=== PATIENT | male | born 1970 | race Caucasian/White ===

== ENCOUNTER 2023-09-15 06:41 | Emergency (ER) | payer OTHER, SELFPAY ==
[2023-09-15 07:01] VITALS: BP 126/71
--- NOTE | 2023-09-15 07:23 | ED.GENMED ---
History of Present Illness
General
Chief Complaint: AICD Problem
Source: patient
Time Seen by Provider: 09/15/23 07:12
Travel History
Have you had any contact with someone who has COVID-19?: No
Do you have any symptoms of coronavirus? Fever > 100 degrees, chills, cough, shortness of breath, sore throat, loss of taste or smell, muscle aches, or headache?: No
History of Present Illness
History of Present Illness:
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
he started to feel little bit lightheaded and then suddenly felt as if someone punched him in the chest with concerns that his AICD fired. Patient arrives to the emergency department still saying he feels a little bit lightheaded but not as bad as
he had prior to arrival to the emergency department. He denies any chest pain, shortness of breath, palpitations, diaphoresis, exertional dyspnea, orthopnea, abdominal pain, nausea, vomiting or any other concerns. Patient states that he has been
feeling quite well lately although he does note this morning his sugars were little bit higher than normal.
Past History
Past History
ED Past Medical History: CAD, HTN, Hypercholesterolemia, IDDM, [place] and Other (Obstructive sleep apnea)
ED Past Surgical History: Cardiac (4 vessel stent placement) and Orthopedic
Social History
Tobacco: Smoker
Alcohol: Occasional
Drug: None
Personal:
Living: with family
Employment: Employed
Family History
Family History: Other (Noncontributory)
Review of Systems
Review of Systems
All Other Systems: ROS reviewed and negative except as documented in HPI and ROS
Phy Exam
Physical Exam
Physical Exam:
GENERAL: Alert , in no apparent distress
EYE: conjunctiva clear
NECK: Supple
ENT: o/p clr, mmm.
CARDIAC: Regular rate and rhythm
LUNGS: Clear breath sounds bilaterally, no acute respiratory distress, no wheezes/rales/rhonchi
NEUROLOGICAL: Alert and oriented
SKIN: Warm and dry, skin intact.
MUSCULOSKELETAL: well perfused.
PSYCH: Normal and appropriate interaction.
Scores
Heart Failure Risk
Heart Failure Risk Score: Not Applicable
Heart Score for Chest Pain Patients
STEMI patient?: Not applicable
Withdrawal Assessment of Alcohol
Withdrawal Assessment Completed?: Not applicable
Course
Orders/Labs/Results
Orders:
Orders
09/15/23 06:50
EKG [Electrocardiogram (*1)] Urgent
Reason for Study: Vertigo / Dizzy
EKG- Treatment ONCE
09/15/23 07:27
Basic Metabolic Panel Urgent
Complete Blood Count/With Diff Urgent
Magnesium Urgent
Abnormal Lab Results
09/15/23
07:27
WBC 11.2 H 10^3/uL
(4.8-10.8)
MPV 11.6 H fL
(7.4-10.4)
Abs Immat Gran (auto) 0.1 H 10^3/uL
(0-0.05)
Absolute Neuts (auto) 7.9 H 10^3/uL
(1.4-6.5)
Absolute Monos (auto) 0.9 H 10^3/uL
(0.1-0.6)
Lymphocytes % 17.5 L %
(20.5-51.1)
Glucose 230 H mg/dl
(70-99)
09/15/23 07:27
09/15/23 07:27
Vital Signs
Initial and Last Documented VS:
Initial Vital Signs
Temp Pulse Resp BP Pulse Ox
97.8 F 80 16 126/71 98
09/15/23 07:01 09/15/23 07:01 09/15/23 07:01 09/15/23 07:01 09/15/23 07:01
Last Documented Vital Signs
Temp Pulse Resp BP Pulse Ox
97.8 F 77 8 138/77 99
09/15/23 07:01 09/15/23 09:00 09/15/23 07:26 09/15/23 09:00 09/15/23 09:00
MDM/Problems Addressed
Differential Diagnosis Includes:
Cardiac dysrhythmia, orthostasis, vagal event
MDM/Problems Addressed:
52-year-old male presenting emergency department for evaluation after he believes his AICD went off after feeling an episode of lightheadedness while at work. Arrives to the emergency department mostly asymptomatic noting that he still has some
mild lightheadedness but this is significantly improved from previous. He is hemodynamically stable in no acute distress. Tempting to interrogate his [employer] device. Patient kept on telemetry. His EKG done in triage is without ectopy
and no signs of ischemia. Disposition pending
Chronic conditions affecting care: Arrhythmia
Acute Exacerbation and/or Progression of Chronic Illness: Arrhythmia
*Pulse Oximetry
Patient hypoxic: no
*EKG
Interpreted by ED Provider?: Yes
Comparison EKG: no changes
Heart Rate: 78
Rate: normal
Rhythm: sinus
Ischemia: no ischemia
*Technical Staff Engineer Interpretation
Rate: normal
Rhythm: sinus
*Critical Care Note
Total Time (30-74mins, 75-104mins- exclusive of procedures): Not Applicable
Patient Management
Discussion with other providers: Other
Escalation/DeEscalation of care consider admission/obs:
[employer] commissary representative came to the emergency department to interrogate patient's AICD and there was no evidence for any cardiac dysrhythmias and no shocks were delivered. Patient has remained hemodynamically stable here and asymptomatic.
Advised he follow-up with his plastic manager at [employer], Dr. Randall, within the week. Aware of return precautions emergency department but otherwise stable for discharge home.
ED Attending Note
-
Portions of this chart may have been created with voice recognition software.� Occasional wrong word or��sound alike� substitutions may have occurred due to the inherent limitations of voice recognition software.
Discharge Plan
Departure
Patient Disposition: Home (Routine Discharge)
Date of Disposition: 09/15/23
Time of Disposition: 09:48
Patient with high blood pressure during this ER visit?: No
Discharge Problem:
Lightheadedness, Diabetes mellitus
Instructions: Near Fainting (DC)
Prescriptions:
No Action
aspirin 325 MG tablet
325 mg PO DAILY
metformin 1,000 MG tablet
1,000 mg PO BID@0800,1700
atorvastatin 20 MG tablet
80 mg PO DAILY
insulin glargine [Lantus Solostar U-100 Insulin] 300 UNITS/3 ML insulin pen
35 units SC HS
prasugrel 10 MG tablet
10 mg PO DAILY
losartan 50 MG tablet
25 mg PO DAILY
sildenafil [Viagra] 100 MG tablet
100 mg PO DAILYPRN PRN (Reason: ED)
nitroglycerin 0.4 MG tablet, sublingual
0.4 mg sublingual [id number] PRN (Reason: chest pain)
folic acid 1 MG tablet
1 mg PO DAILY
ezetimibe 10 MG tablet
10 mg PO DAILY
insulin lispro [Humalog KwikPen Insulin] 100 UNIT/ML insulin pen
10 units SC MEALS
Patient Comments:
11/28/21-patient said he hasnt used this in a month, called [facility] they said he has l[facility]us on file but not covered by insurance and novolog from 2 years ago, that on hold and never picked up
carvedilol [Coreg] 6.25 mg Tablet
6.25 mg PO BID
Jardiance 10 mg tablet
10 mg PO DAILY Qty: 30 6RF
isosorbide mononitrate 60 mg tablet extended release 24 hr
60 mg PO BID Qty: 60 6RF
Rx Instructions:
Increase Imdur to 60 mg twice a day
Referrals:
Ladarius Steinberg MD [Family Provider] -
Interventions
Interventions:
*Risk Screen - Suicide Last Done: 09/15/23 07:25
*General Assessment Last Done: 09/15/23 07:01
*Neglect/Abuse Screening Last Done: 09/15/23 07:25
ED- Fall Risk Assessment Last Done: 09/15/23 07:25
*ED COVID-19 Vaccine History Last Done: 09/15/23 07:01
ED- Cardiac Assessment Last Done: 09/15/23 07:25
Discharge Date and Time
Print Language: NAURUAN
[2023-09-15 07:25] VITALS: BMI 37.2
[2023-09-15 07:26] VITALS: BP 137/81
[2023-09-15 07:55] LABS: % Basophils 0.7 % (0-2); % Immature Granulocytes 0.4 % (0-0.5); % Lymphocytes 17.5 % (20.5-51.1); % Monocytes 7.8 % (1.7-9.3); % Neutrophils 70.6 % (42.2-75.2); Absolute Basophils 0.1 10^3/uL (0-0.2); Absolute Eosinophils 0.3 10^3/uL (0-0.7); Absolute Immature Granulocytes 0.1 10^3/uL (0-0.05); Absolute Monocytes 0.9 10^3/uL (0.1-0.6); Absolute Neutrophils 7.9 10^3/uL (1.4-6.5); Hematocrit 45.2 % (39.0-52.0); Hemoglobin 15.4 g/dL (13.0-18.0); Mean Corp Hgb Conc. 34.1 g/dL (33.0-37.0); Mean Corpuscular Hgb 28.2 pg (27.0-31.0); Mean Corpuscular Volume 82.8 fL (80.0-94.0); Mean Platelet Volume 11.6 fL (7.4-10.4); Nucleated Red Blood Cells % 0 % (-); Platelet Count 210 10^3/uL (130-400); Red Blood Cell Count 5.46 10^6/uL (4.70-6.10); Red Cell Dist. Width 13.4 % (11.5-14.5); White Blood Cell Count 11.2 10^3/uL (4.8-10.8)
[2023-09-15 07:57] LABS: Blood Urea Nitrogen 20 mg/dl (9-20); Calcium 9.4 mg/dl (8.4-10.2); Carbon Dioxide 29 mmol/L (22-30); Chloride 104 mmol/L (98-107); Glucose 230 mg/dl (70-99); Magnesium 1.7 mg/dl (1.6-2.3); Potassium 4.5 mmol/L (3.5-5.1); Sodium 135 mmol/L (135-145); eGFR > 60.00
[2023-09-15 08:00] VITALS: BP 110/68
[2023-09-15 09:00] VITALS: BP 138/77
[2023-09-15 09:52] VITALS: BP 129/69
[2023-09-15 09:55] VITALS: BP 129/69
== END 2023-09-15 09:55 | disposition home or self-care (01) ==
LOC: EMR 06:41
PROVIDERS: Physician Assistant Medical; EMERGENCY PHYSICIAN Emergency Medicine; FAMILY PHYSICIAN Internal Medicine
DX: R42 Dizziness and giddiness (principal); E11.9 Type 2 diabetes mellitus without complications; I25.10 Atherosclerotic heart disease of native coronary artery without angina pectoris; I10 Essential (primary) hypertension; E78.00 Pure hypercholesterolemia, unspecified; G47.33 Obstructive sleep apnea (adult) (pediatric); F17.200 Nicotine dependence, unspecified, uncomplicated; I25.2 Old myocardial infarction; Z79.4 Long term (current) use of insulin; Z95.5 Presence of coronary angioplasty implant and graft; Z95.810 Presence of automatic (implantable) cardiac defibrillator
CPT/HCPCS: 99283; 93289; 80048; 83735; 85025; 93005

== ENCOUNTER 2024-01-16 14:25 | Inpatient (IN) | payer OTHER, SELFPAY ==
[2024-01-14] VITALS (9 sets, daily range): BP systolic 103–164; BP diastolic 76–94; BMI 37.8
[2024-01-14 19:48] LABS: Glucose - Point of Care 508 mg/dl (70-99)
--- NOTE | 2024-01-14 19:58 | ED.CVA ---
History of Present Illness
General
Chief Complaint: CVA/TIA Symptoms
Source: patient
Exam Limitations: none
Time Seen by Provider: 01/14/24 19:52
Nursing documentation reviewed up to this point in time: agreed with
Onset of Stroke Symptoms
Onset of symptoms known: Yes
Date of onset of symptoms: 01/14/24
Time of onset of symptoms: 19:00
Time pt last seen normal is known: Yes
Date last time pt seen normal: 01/14/24
History of Present Illness
History of Present Illness:
53-year-old male presents emergency room via ambulance due to episode of slurred speech, lightheadedness, tingling and numbness upper extremity.
Past History
Past History
ED Past Medical History: CAD, HTN, Hypercholesterolemia, IDDM, [place] and Other (Obstructive sleep apnea)
ED Past Surgical History: Cardiac (4 vessel stent placement) and Orthopedic
Social History
Tobacco: Smoker
Alcohol: Occasional
Drug: None
Personal:
Living: with family
Employment: Employed
Family History
Family History: Other (Noncontributory)
Phy Exam
Physical Exam
Physical Exam:
Physical Exam
General: Afebrile
Neck: supple. no meningeal signs. normal posterior pharynx
Heart: s1/s2 regular rate and rhythm, no murmur. equal radial
pulses.
HEENT: Pupils equal round reactive to light, EOMI
Lungs: no acute respiratory distress. clear bilaterally
Abdomen: normal bowel sounds. not tender. no CVAT
Neuro: alert and oriented. no focal neurological deficits cranial nerves II through XII intact
Skin: no rash
Psychiatric: well kept. interactive and cooperative
Extremities: no edema. no calf tenderness. negative homans. good distal pulses
Scores
NIH Stroke Score
Level of Consciousness: 0 - Alert
LOC Questions: 0-Answers both correctly
LOC Commands: 0-Performs both correctly
Best Horizontal Gaze: 0-Normal
Visual Santos: 0=Normal, no visual loss
Facial Palsy: 0=Normal, symmetrical
Motor - Right Arm: 0=No drift 10 seconds
Motor - Left Arm: 0=No drift 10 seconds
Motor - Right Le-No drift 5 seconds
Motor - Left Le-No drift 5 seconds
Limb Ataxia: 0-Absent
Sensation: 1-Mild loss
Best Language: 0-No aphasia
Dysarthria: 0-Normal
Extinction and Inattention: 0-No abnormality
Total Score:: 1
Course
Orders/Labs/Results
Orders:
Orders
01/14/24 19:52
CT Head W/o Cont STROKE ALERT Stat
Comment:
Reason For Exam: left side sensory def
01/14/24 19:53
IV Insert/Care/Rem.- Treatment PRN
01/14/24 20:17
B-Hydroxybutyrate Urgent
Complete Blood Count/With Diff Urgent
Comprehensive Metabolic Panel Urgent
Hemoglobin A1c [Glycohemoglobin (HgbA1c)] Urgent
Lactate Level [Lactic Acid] Urgent
Venous Blood Gas Urgent
%Oxygen/Room Air: 97
01/14/24 20:23
Urinalysis Reflex To Culture Urgent
Date Specimen was Collected: 01/14/24
Time Specimen was Collected: 19:52
01/14/24 20:25
EKG [Electrocardiogram (*1)] Urgent
Reason for Study: TIA/Stroke
01/14/24 20:26
EKG- Treatment ONCE
01/14/24 22:12
Insulin Aspart [NOVOLOG vial] 10 units SC NOW STA
01/14/24 22:56
Admit/Transfer Patient As Directed
Co-Sign Provider:
Level of Care: Observation services
Assign to:: Telemetry
Physician / Group: Hospitalist
Diagnosis: TIA, hyperglycemia
Reason for Telemetry: CVA/TIA
Date to Stop Telemetry: 01/17/24
Time to Stop Telemetry: 11:00
PRN Pain Medication Management As Directed
May give lesser potent ordered pain med per pt: Yes
preference::
Protocol:: Medication orders for pain may be administered in a
manner that supports deferring to patient preference
when the pt is:
- Requesting an ordered lesser potent pain medication.
Least to most potent pain medications are defined
as: acetaminophen < NSAID < tramadol < opioids
(morphine, oxycodone, hydromorphone).
- Requesting a lesser dose of the same medication IF
ORDERED.
- Requesting a less intrusive route of administration
if both routes are prescribed by the provider (PO <
IV).
01/14/24 22:57
Code Status As Directed
Resuscitation Status: Full Code
01/14/24 23:00
Flush (0.9% Sodium Chloride) [Flush (Nss)] See Dose Instructions IV PER PROTOCOL
01/14/24 23:28
Acetaminophen [Tylenol] 650 mg PO NOW STA
Acetaminophen [Tylenol] 650 mg PO Q6HPRN PRN
01/15/24 00:55
Acetaminophen [Tylenol/Feverall] 650 mg RECTAL Q4HPRN PRN
Acetaminophen [Tylenol] 650 mg PO Q4HPRN PRN
Dextrose 50%-Water [Dextrose 50% Syringe] 12.5 grams IV [id number] PRN
Glucagon [GlucaGen] 1 mg IM PRN PRN
Insulin Glargine Lantus [Lantus] 30 units Subcutaneous Insulin Syringe [Syringe-Insulin] 0 unit SC ONCE
01/15/24 00:55
NEUROLOGY CONSULT Routine
Consulting Provider: Raul Ignacio
Was physician already notified: Yes
Reason for consult: TIA
MRI Brain [MR Brain Without Contrast] Routine
Comment:
Reason For Exam: TIA/CVA. h/o left arm numbness
Recent pill cam endoscopy?: No
Pacemaker/Defibrillator?: Yes
Is the pacemaker a conditional type?: Yes
Activity As Directed
Activity Level: With Assistance
Bedside Glucose Monitoring As Directed
Frequency: AC&HS
Additional Instructions:: Change to q6h if pt on TPN, tube feeding or not eating
Bedside Glucose Monitoring As Directed
Frequency: AC&HS
NIH Stroke Scale As Directed
Directions: Per protocol
Comment: every shift and with any change in condition or mental status
Neurological Checks As Directed
Frequency: q4h
Additional Instructions:: q4h x 24h upon admission to the floor, then qshift & with any change in condition
and mental status
Patient Education As Directed
Type: Stroke education packet
Comment: provide to patient and family
Vital Signs As Directed
Frequency: Per unit guidelines
DX Deep Vein Thrombosis Video Routine
01/15/24 06:00
Cardiovascular Evaluation IN AM
01/15/24 07:30
Insulin Aspart Corrective Mod [Novolog Flexpen-Moderate Resistance] See Protocol SC AC
Insulin Aspart Pen [Novolog Flexpen] 10 units SC AC
01/15/24 08:00
Aspirin 325 mg PO DAILY
Atorvastatin [Lipitor] 80 mg PO DAILY
Carvedilol [Coreg] 6.25 mg PO BID
Clopidogrel Bisulfate [Plavix] 75 mg PO DAILY
Ezetimibe [Zetia] 10 mg PO DAILY
FOLic ACID [Folvite] 1 mg PO DAILY
ISOSORBIDE MONOnitrate ER [Imdur (Extended Release)] 60 mg PO BID
Losartan [Cozaar] 25 mg PO DAILY
METFORMIN HCl [Glucophage] 1,000 mg PO BID@0800,1700
01/15/24 Dinner
2000 calorie (17 carb) Diabetic
At Your Request: Limited Participation
01/15/24 18:00
Enoxaparin Sodium [Lovenox] 40 mg SC QPM
01/15/24 22:00
Insulin Glargine Lantus [Lantus] 30 units Subcutaneous Insulin Syringe [Syringe-Insulin] 0 unit SC HS
01/17/24 11:00
DC Protocol for Telemetry ONCE
Abnormal Lab Results
01/14/24 01/14/24 01/14/24
19:46 20:17 20:23
MPV 11.5 H fL
(7.4-10.4)
Abs Immat Gran (auto) 0.1 H 10^3/uL
(0-0.05)
Absolute Neuts (auto) 7.1 H 10^3/uL
(1.4-6.5)
Absolute Monos (auto) 0.9 H 10^3/uL
(0.1-0.6)
Immature Gran % 0.7 H %
(0-0.5)
VBG pO2 62 H mmHg
(30-50)
VBG HCO3 27.9 H mmol/L
(22-27)
Glucose 492 H* mg/dl
(70-99)
AST 16 L U/L
(17-59)
Alkaline Phosphatase 131 H U/L
(38-126)
Urine Glucose 3+ A
(Negative)
POC Glucose 508 H* mg/dl
(70-99)
01/14/24 20:17
01/14/24 20:17
Vital Signs
Initial and Last Documented VS:
Initial Vital Signs
Temp Pulse Resp BP Pulse Ox
98.6 F 95 20 164/94 97
01/14/24 19:41 01/14/24 19:41 01/14/24 19:41 01/14/24 19:41 01/14/24 19:41
Last Documented Vital Signs
Temp Pulse Resp BP Pulse Ox
98.2 F 79 18 141/87 97
01/15/24 01:18 01/15/24 01:18 01/15/24 01:18 01/15/24 01:18 01/15/24 01:18
MDM/Problems Addressed
Differential Diagnosis Includes:
CVA, intracranial hemorrhage
MDM/Problems Addressed:
53-year-old male with likely TIA versus CVA. No indication for IAT or tPA. Admit to hospitalist for further evaluation. Hyperglycemia, no DKA.
Chronic conditions affecting care: DM
Acute Exacerbation and/or Progression of Chronic Illness: DM
*Radiology
Radiology exam reviewed: radiology read reviewed (CT head no acute finding)
*Pulse Oximetry
Patient hypoxic: no
*EKG
Interpreted by ED Provider?: Yes
EKG Intrepretation Date: 01/15/24
EKG Intrepretation Time: 20:44
Interpretation: abnormal
Heart Rate: 88
Rate: normal
Rhythm: sinus
Byron: normal axis
Interval: normal interval
QRS Pattern: normal QRS
Ischemia: no ischemia
*Director Design Interpretation
Rate: normal
Interpretation: normal
Heart Rate: 87
Rhythm: sinus
*Critical Care Note
Total Time (30-74mins, 75-104mins- exclusive of procedures): 30
comment:
Critical care statement: A total of 30 minutes of critical care time was provided for this patient. This includes management of unstable vital signs, evaluation of the patient at bedside, reviewing the patient's pertinent medical records, discussion
with consultants, review of old EKGs and review of pertinent medical records. This time with separate from time utilized to perform the aforementioned documented procedures
Data Reviewed
Review of Other/Old Records Reveals: Records
Source: records (Prior evaluation with a EF of 20% in 2020)
Patient Management
Discussion with other providers: Hospitalist and Force Variation Equipment Tender (neurology Dr. Raul Ignacio)
Escalation/DeEscalation of care consider admission/obs:
admit indicated
ED Attending Note
-
Portions of this chart may have been created with voice recognition software.� Occasional wrong word or��sound alike� substitutions may have occurred due to the inherent limitations of voice recognition software.
Discharge Plan
Departure
Patient Disposition: Admit
Date of Disposition: 01/14/24
Time of Disposition: 21:56
Admit to: Telemetry
Presentation/result/management discussed w/ accepting MD/DO: Hospitalist
Patient with high blood pressure during this ER visit?: Yes
Condition: Fair
Discharge Problem:
Transient ischemic attack (TIA)
Interventions
Interventions:
*Risk Screen - Suicide Last Done: 01/14/24 20:31
*General Assessment Last Done: 01/14/24 20:31
*Neglect/Abuse Screening Last Done: 01/14/24 20:31
ED- Fall Risk Assessment Last Done: 01/14/24 20:31
*ED COVID-19 Vaccine History Last Done: 01/14/24 20:31
*Nursing Disposition Last Done: 01/15/24 01:04
ED- Pulmonary Assessment Last Done: 01/14/24 20:31
ED- Neurological Assessment Last Done: 01/14/24 20:31
ED- Cardiac Assessment Last Done: 01/14/24 20:31
ED Swallowing Screen Last Done: 01/14/24 20:31
Discharge Date and Time
Discharge Date/Time: 01/15/24 01:04
[2024-01-14 20:27] LABS: % Basophils 0.9 % (0-2); % Eosinophils 2.7 % (0-6); % Immature Granulocytes 0.7 % (0-0.5); % Lymphocytes 21.8 % (20.5-51.1); % Monocytes 8.2 % (1.7-9.3); % Neutrophils 65.7 % (42.2-75.2); Absolute Basophils 0.1 10^3/uL (0-0.2); Absolute Eosinophils 0.3 10^3/uL (0-0.7); Absolute Immature Granulocytes 0.1 10^3/uL (0-0.05); Absolute Lymphocytes 2.4 10^3/uL (1.2-3.4); Absolute Monocytes 0.9 10^3/uL (0.1-0.6); Absolute Neutrophils 7.1 10^3/uL (1.4-6.5); Hematocrit 42.6 % (39.0-52.0); Hemoglobin 14.9 g/dL (13.0-18.0); Mean Corpuscular Hgb 28.4 pg (27.0-31.0); Mean Corpuscular Volume 81.3 fL (80.0-94.0); Mean Platelet Volume 11.5 fL (7.4-10.4); Nucleated Red Blood Cells % 0 % (-); Platelet Count 219 10^3/uL (130-400); Red Blood Cell Count 5.24 10^6/uL (4.70-6.10); White Blood Cell Count 10.8 10^3/uL (4.8-10.8)
[2024-01-14 20:29] LABS: Venous Blood Gas B.E. 2.4 mmol/L (-4 to +4); Venous Blood Gas HCO3 27.9 mmol/L (22-27); Venous Blood Gas O2 Sat % 91.9 %; Venous Blood Gas pCO2 45 mmHg (35-48); Venous Blood Gas pO2 62 mmHg (30-50)
[2024-01-14 20:40] LABS: Lactic Acid 1.5 mmol/L (0.7-2.0)
[2024-01-14 20:55] LABS: Urine Albumin Negative (Neg - Trace); Urine Bilirubin Negative (Negative); Urine Character Clear (Clear); Urine Color Yellow; Urine Glucose 3+ (Negative); Urine Ketone Negative (Negative); Urine Leukocyte Negative (Negative); Urine Nitrite Negative (Negative); Urine Occult Blood Negative (Negative); Urine Urobilinogen Negative (Neg - 1+); Urine pH 6.5 (5.0-9.0)
[2024-01-14 21:15] LABS: ALT (SGPT) 15 U/L (0-50); AST (SGOT) 16 U/L (17-59); Albumin 4.3 g/dl (3.5-5.0); Alkaline Phosphatase 131 U/L (38-126); Blood Urea Nitrogen 12 mg/dl (9-20); Calcium 9.5 mg/dl (8.4-10.2); Carbon Dioxide 27 mmol/L (22-30); Chloride 98 mmol/L (98-107); Estimated Creatinine Clearance 97 ml/min; Glucose 492 mg/dl (70-99); Potassium 4.4 mmol/L (3.5-5.1); Sodium 136 mmol/L (135-145); Total Bilirubin 0.5 mg/dl (0.2-1.3); Total Protein 6.4 g/dl (6.3-8.2); eGFR > 60.00
--- NOTE | 2024-01-14 22:36 | HPS.HSE ---
Family Physician
-
Family Physician: Ladarius Steinberg
Chief Complaint
-
Left arm/hand numbness
History of Present Illness
This is a 53-year-old with past medical history of CAD status post NSTEMI with ischemic cardiomyopathy and AICD placement, hypertension, hyperlipidemia, FLORESITA not on CPAP insulin-dependent diabetes, prior TIA who presents to the emergency department
with acute episode of numbness in his right arm and hand.
Patient reports being in usual state of health up until living walk this evening when he noted numbness in his left hand. He cannot feel anything he touched. He was also dropping some object. He denies having any weakness. He denies any slurred
speech, facial asymmetry, double vision or blurry vision. He denies having any palpitations lightheadedness or dizziness. Reports that he had a previous TIA. Denies having any headache.
On arrival in ED patient was hypoglycemic. He reports that he did not take his insulin throughout the day despite eating. He also did not take his metformin last night. He reports that his usual a.m. fasting blood glucose was low side in the 50s
but he remains asymptomatic. He states his A1c is elevated.
On arrival in the ED the patient was hemodynamically stable with a blood pressure 144/76 pulse of 86 afebrile and normal oxygen saturation on room air. ECG with normal sinus rhythm at a rate of 88 and nonspecific T wave abnormalities but unchanged
from prior. CT of the head showed no acute abnormalities. Chemistries were notable for a glucose of 490. CBC is unremarkable.
Medical History
Past Medical History
Past Medical History: Reports CAD, HTN, Hypercholesterolemia, IDDM and [place]
Additional Past Medical History:
ICM reduced EF s/p AICD
FLORESITA no CPAP
Past Surgical History: Reports None
Social History
Tobacco: Non-smoker
Alcohol: None
Drug: None
Personal:
Living: With Family
Employment: Employed
Family History
Family History: Not pertinent
Allergies / Home Medications
Allergies reflects when Allergies were last updated in [email or web address].
Home Medications with original date entered in [email or web address]
Allergy/Medication List:
Allergies
Allergy/AdvReac Type Severity Reaction Status Date / Time
No Known Allergies Allergy Verified 09/15/23 07:05
Home Medications
aspirin 325 mg tablet 325 mg PO DAILY Blood clot prevention/tx 11/19/11
metformin 1,000 mg tablet 1,000 mg PO BID@0800,1700 Diabetes 11/19/11
atorvastatin 20 mg tablet 80 mg PO DAILY High cholesterol 02/23/19
ezetimibe 10 mg tablet 10 mg PO DAILY High cholesterol 12/29/20
folic acid 1 mg tablet 1 mg PO DAILY Supplement 12/29/20
losartan 50 mg tablet 25 mg PO DAILY Blood pressure 12/29/20
insulin lispro 100 unit/mL subcutaneous pen (Humalog KwikPen (U-100) Insulin) 10 units SC MEALS Diabetes 04/24/21
carvedilol 6.25 mg tablet (Coreg) 6.25 mg PO BID 11/28/21
isosorbide mononitrate 60 mg tablet,extended release 24 hr 60 mg PO BID #60 tabs 11/28/21
Metoprolol 1 tab PO DAILY 01/14/24
clopidogrel 75 mg tablet 75 mg PO DAILY 01/14/24
insulin glargine-yfgn 100 unit/mL (3 mL) subcutaneous pen (Semglee (insulin glargine-yfgn) Pen) 44 unit SC HS 01/14/24
Review of Systems
-
Constitutional: Reports No Symptoms
EENT: Reports No Symptoms
Respiratory: Reports No Symptoms
Cardiac: Reports No Symptoms
Abdomen/GI: Reports No Symptoms
: Reports No Symptoms
Musculoskeletal: Reports No Symptoms
Skin: Reports No Symptoms
Neurological: Reports Numbness (left upper extremity)
Endocrine: Reports No Symptoms
Hematologic/Lymphatic: Reports No Symptoms
Psych: Reports No Symptoms
Physical Exam
Vital Signs
Vital Signs
Temp Pulse Resp BP Pulse Ox
98.6 F 86 23 144/76 97
01/14/24 19:41 01/14/24 20:45 01/14/24 20:45 01/14/24 20:43 01/14/24 20:31
Physical Exam
General: Well Developed, No Apparent Distress and Comfortable
HEENT: NormoCephalic, Anicteric, Moist mucous membranes, Atraumatic and PERRLA
Respiratory: Clear
Cardiac: S1/S2 and Regular Rhythm
Breast: Deferred by me
GI: Soft, Non Tender and Normal Bowel Sounds
Rectal: Deferred by Provider
Genito-urinary: Deferred by me
Musculoskeletal: No Clubbing, No Cyanosis and No Edema
Skin: Warm
Neuro: AO x 3, No Motor Deficits, Cranial Nerves Intact, No Sensory Deficits (left hand/forearm numbness) and DTR's Intact & Symmetrical
Hematologic/Lymphatic: No Lymphadenopathy
Psych: Anxious
Laboratory Results
-
01/14/24 20:17
01/14/24 20:17
Laboratory Results
Lactic Acid 1.5 mmol/L (0.7-2.0) 01/14/24 20:17
Total Bilirubin 0.5 mg/dl (0.2-1.3) 01/14/24 20:17
AST 16 U/L (17-59) L 01/14/24 20:17
ALT 15 U/L (0-50) 01/14/24 20:17
Alkaline Phosphatase 131 U/L (38-126) H 01/14/24 20:17
Data Reviewed
-
CT Scan: Report Reviewed by me
Medical Tests (Nuc Med, Echo, EKG etc): Image Personally Visualized and interpreted
Lab Data: Labs Reviewed by me
Old Records: Reviewed
Impression/Plan
-
IMPRESSION:
53-year-old with history of ischemic cardiomyopathy status post AICD, CAD status post stenting, hypertension, hyperlipidemia, FLORESITA and insulin-dependent diabetes who presents to the emergency department with acute episode of left arm numbness. The
rest of his neurological exam is completely intact. Symptoms been persistent now for the last [address] of the head was unremarkable. His labs were notable for uncontrolled blood glucose of 490. History also suggestive for for
poorly controlled diabetes.
PLAN:
1. Left arm numbness - TIA vs mononeuropathy. D/W Neuro.
- admit to telemetry for possible tia
- continue plavix and aspirin per neuro
- continue statin
- mri in am, patient reports device is often deactivated with magnet for MRI
- neuro check q 6 h
2. Uncontrolled DM 2 - Reports degree of non-compliance, did not take insulin today or metformin yesterday. BG 490 in ED. Possible mononeuropathy multiplex cuse left arm numbness.
- check a1c
- continue premeal glucose 10 units ac
- sliding scale achs
- continue metformin
- lantus 30 HS (taking Semglee 44 at home with report of am hypoglycemia)
- f/u with outpatient pmd or endo
3. Ischemic CMP
- aspirin/plavix and statin
- carvedilol
- imdur and losartan
DVT PPX - lovenox sq
Full code
[2024-01-15] VITALS (11 sets, daily range): BP systolic 99–154; BP diastolic 59–90; BMI 36.0
[2024-01-15] MEDS: NOVOLOG vial 10 UNITS SC (00:17)
--- NOTE | 2024-01-15 01:00 | PTCARENOTE ---
Pt received from ED to [facility] Pt oriented to room and call dupree.
[2024-01-15] MEDS: TYLENOL 650 MG PO ×2 (01:06→16:52)
[2024-01-15] MEDS: LANTUS 0.3 UNITS SC ×2 (01:22→21:57)
[2024-01-15 01:28] LABS: Glucose - Point of Care 316 mg/dl (70-99)
[2024-01-15 07:33] LABS: Glucose - Point of Care 148 mg/dl (70-99)
[2024-01-15 08:13] LABS: HDL Cholesterol 42 mg/dl; LDL Cholesterol, Calculated 191 mg/dl; Total Cholesterol 259 mg/dl (50-199); Triglyceride 134 mg/dl (10-149); Very Low Density Lipoprotein 26 mg/dl (0-30)
[2024-01-15] MEDS: IMDUR (EXTENDED RELEASE) 60 MG PO ×2 (08:27→20:38)
[2024-01-15] MEDS: ASPIRIN 325 MG PO (08:27)
[2024-01-15] MEDS: FOLVITE 1 MG PO (08:27)
[2024-01-15] MEDS: COREG 6.25 MG PO ×2 (08:27→20:38)
[2024-01-15] MEDS: PLAVIX 75 MG PO (08:27)
[2024-01-15] MEDS: LIPITOR 80 MG PO (08:27)
[2024-01-15] MEDS: GLUCOPHAGE 1000 MG PO ×2 (08:27→16:46)
[2024-01-15] MEDS: COZAAR 25 MG PO (08:27)
[2024-01-15] MEDS: ZETIA 10 MG PO (08:27)
[2024-01-15] MEDS: NOVOLOG FLEXPEN-MODERATE RESISTANCE SC ×2 (08:28→16:46)
[2024-01-15] MEDS: NOVOLOG FLEXPEN 10 UNITS SC ×3 (08:28→16:46)
--- NOTE | 2024-01-15 10:12 | CON.NEURO4 ---
Documented by User: Nasreen Gilbert NP 01/15/24 13:40
Consultation - Neurology 4
-
CONSULTING PHYSICIAN: Raul Ignacio MD
REFERRING PHYSICIAN: Hospitalists/Dr. Michale
DICTATED BY: HORACIO Stewart
DATE/TIME OF REQUEST: 01/15/24
DATE/TIME OF CONSULTATION: 01/15/24
Reason for Consultation: Left-sided numbness, dysarthria
History of Present Illness:
This is a 53-year-old ambidextrous handed male who has presented to the hospital on 01/14/24 with report of dysarthria and LUE numbness. Patient reports that yesterday (01/14/24) he was at his baseline at work during the day. Around 1900 he reports
that his coworker told him that his speech sounded slurred and then suddenly his left hand started to feel numb and he was dropping things. His coworkers called 911. On arrival in the ER his blood sugar was 490. CT head was obtained and demonstrates
and old right frontoparietal ischemic stroke but no acute abnormalities. NIHSS was 1 for mild loss of sensation. He was not a candidate for TNK/IAT due to low NIHSS. He is taking a full dose aspirin and Plavix 75mg daily for cardiac purposes and
denies missing any doses. He does note that he missed his metformin the evening on 01/13/24 and he forget to take his insulin yesterday morning. He reports having a 'TIA' in the past consisting of dysarthria. He cannot recall exactly when this was but
between 5-10 years ago. He underwent a stroke workup at that time and was told it was unremarkable. He reports that he intermittently has slurred speech which he attributes to fatigue from poor sleep/long work shifts. He also notes that he just
completed a course of oral steroids last week for poison maría elena treatment. He denies any headache, dizziness, swallowing difficulty, weakness, nausea, chest pain, palpitations, and shortness of breath.
Past Medical History: HTN, HLD, NIDDM, DE, CAD, FLORESITA (no cpap)
Surgical History: AICD, cardiac stents
Family History: Reviewed and noncontributory.
Social History: Current daily smoker (3-4 cigarettes daily), occasional alcohol, denies illicit drug use. 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
Allergies: No known allergies.
Home Medications: See below.
Review of Symptoms:
Patient denies any fever, headache, chest pain, shortness of breath, GI or symptoms.
�Per the HPI.�All systems are reviewed negative except above.
Physical Exam:
The patient is afebrile, abdomen is nondistended, breathing is unlabored, skin is warm and dry, no edema.
NIH Stroke Scale:
I performed the NIH stroke scale on the patient on 01/15/24 at 1030. The patient scored 5 points on the NIH stroke scale assessment, which were assigned as follows: See below.
Neurologic Examination:
The patient is awake, alert and oriented x 3. He is able to follow commands and answer questions appropriately. There is no aphasia. There is mild dysarthria. On cranial nerve assessment, pupils are 3 mm bilateral, round and reactive to light and
accommodation. Visual santos are full. Extraocular movements are intact. Facial sensations are intact and bilaterally symmetrical, there is no facial asymmetry. Hearing is intact bilaterally to normal conversation volume. Tongue palate and uvula are
midline. Sternocleidomastoid strengths are full bilaterally. Motor strengths are 5/5 bilateral upper and lower extremities on medical research [place] scale. There is slight drift in the LUE and LLE. No involuntary movement noted. Deep tendon
reflexes are 1+ bilateral upper and lower extremities and Babinski is absent bilaterally. Sensations of touch, temperature and vibration are mildly reduced in the LUE and LLE. There was extinction noted on double simultaneous stimulation in the left
arm and leg. Coordination is intact by finger to nose bilaterally.
Lab Results: See below.
Neuro Imaging:
1. CT Head 01/15/24: No acute intracranial hemorrhage. Old watershed infarct between the right frontal lobe and right parietal lobe, having developed since prior examination. No other abnormal parenchymal attenuation. Aspects score: 10.
Differentials for the patient's presentation include:
1. Left-sided symptoms concerning for acute ischemic infarct vs recrudescence of old right frontoparietal stroke in the setting of hyperglycemia.
2. CT head demonstrates an old large ischemic right frontoparietal lobe infarct.
3. Possible untreated FLORESITA.
4. Nicotine dependence.
5. Uncontrolled NIDDM/medication noncompliance.
Patient has the following risk factors for their symptoms: Hyperglycemia, HTN, HLD, old stroke
IV Tenecteplase/IAT candidacy: He was not a candidate for TNK/IAT due to low NIHSS.
Recommendations:
-Continue home aspirin 325mg and Plavix 75mg PO daily.
-Permissive hypertension SBP<220, DBP<120 until 1900 tonight, then goal normotension.
-MRI brain, MRA COW noncontrast pending.
-Carotid ultrasound pending.
-LDL goal <70. LDL is 191. Continue atorvastatin 80mg and Zetia 10mg daily, will need outpatient evaluation by Cardiology for consideration of PCSK9 inhibitor options.
-Goal normoglycemia, hbA1c is 12.3.
-Checking blood work for metabolic abnormalities.
-NIHSS and neurological checks per unit guidelines.
-Provide patient with a stroke education packet.
-Smoking cessation counseling.
-PT/OT/ST evaluations.
-DVT prophylaxis.
-Will follow pending results.
Discussed patient care with: Dr. Ignacio, the patient
Vital Signs and Labs
-
Vital Signs and Labs:
Vital Signs
Temp Pulse Resp BP Pulse Ox
98.3 F 65 18 118/61 96
01/15/24 11:00 01/15/24 11:00 01/15/24 11:00 01/15/24 11:00 01/15/24 11:00
Lab Results
01/14/24 20:17
01/14/24 20:17
Sodium 136 mmol/L (135-145) 01/14/24 20:17
Potassium 4.4 mmol/L (3.5-5.1) 01/14/24 20:17
BUN 12 mg/dl (9-20) 01/14/24 20:17
Glucose 492 mg/dl (70-99) H* 01/14/24 20:17
Calcium 9.5 mg/dl (8.4-10.2) 01/14/24 20:17
LDL Cholesterol, Calc 191 mg/dl 01/15/24 06:38
Medications
-
Active Medications
Generic Name Dose Route Start Last Admin
Trade Name Freq PRN Reason Stop Dose Admin
Acetaminophen 650 mg 01/14/24 23:28
Acetaminophen 325 Mg Tablet PO 02/11/24 23:27
Q6HPRN PRN
mild pain/ fever>100.5F
Acetaminophen 650 mg 01/15/24 00:55
Acetaminophen 650 Mg Rectal Suppository RECTAL 02/12/24 00:54
Q4HPRN PRN
SKELTON, mild pain, or temp >100.4F
Acetaminophen 650 mg 01/15/24 00:55
Acetaminophen 325 Mg Tablet PO 02/12/24 00:54
Q4HPRN PRN
SKELTON, mild pain, or temp >100.4F
Aspirin 325 mg 01/15/24 08:00 01/15/24 08:27
Aspirin 325 Mg Tablet PO 02/12/24 07:59 325 mg
DAILY FATEMEH Administration
Atorvastatin Calcium 80 mg 01/15/24 08:00 01/15/24 08:27
Atorvastatin (Lipitor) 80 Mg Tablet PO 02/12/24 07:59 80 mg
DAILY FATEMEH Administration
Carvedilol 6.25 mg 01/15/24 08:00 01/15/24 08:27
Carvedilol 6.25 Mg Tablet PO 02/12/24 07:59 6.25 mg
BID FATEMEH Administration
Clopidogrel Bisulfate 75 mg 01/15/24 08:00 01/15/24 08:27
Clopidogrel 75 Mg Tablet PO 02/12/24 07:59 75 mg
DAILY FATEMEH Administration
Dextrose 12.5 grams 01/15/24 00:55
Dextrose 50% (0.5 Grams/Ml) 50 Ml Syringe IV 02/12/24 00:54
[id number] PRN
hypoglycemia
Protocol
Ezetimibe 10 mg 01/15/24 08:00 01/15/24 08:27
Ezetimibe (Zetia) 10 Mg Tablet PO 02/12/24 07:59 10 mg
DAILY FATEMEH Administration
Enoxaparin Sodium 40 mg 01/15/24 18:00
Enoxaparin Sodium 40 Mg/0.4 Ml Syringe SC 02/12/24 17:59
QPM FATEMEH
Folic Acid 1 mg 01/15/24 08:00 01/15/24 08:27
Folic Acid 1 Mg Tablet PO 02/12/24 07:59 1 mg
DAILY FATEMEH Administration
Glucagon 1 mg 01/15/24 00:55
Glucagon 1 Mg Vial IM 02/12/24 00:54
PRN PRN
hypoglycemia
Protocol
Insulin Glargine 30 units/ 0.3 mls @ 0 mls/hr 01/15/24 22:00
Device SC 02/12/24 21:59
HS FATEMEH
As Directed
Insulin Aspart 0 units 01/15/24 07:30 01/15/24 08:28
Insulin Aspart Moderate Resistance 300 Units/3 Ml Pen.Injctr SC 02/12/24 07:29 Not Given
AC FATEMEH
Protocol
Insulin Aspart 10 units 01/15/24 07:30 01/15/24 08:28
Insulin Aspart (100 Units/Ml) 3 Ml Flexpen SC 02/12/24 07:29 10 units
AC FATEMEH Administration
Isosorbide Mononitrate 60 mg 01/15/24 08:00 01/15/24 08:27
Isosorbide Mononitrate 60 Mg Extended Release Tablet PO 02/12/24 07:59 60 mg
BID FATEMEH Administration
Losartan Potassium 25 mg 01/15/24 08:00 01/15/24 08:27
Losartan 25 Mg Tablet PO 02/12/24 07:59 25 mg
DAILY FATEMEH Administration
Metformin HCl 1,000 mg 01/15/24 08:00 01/15/24 08:27
Metformin 1000 Mg Regular Release Tablet PO 02/12/24 07:59 1,000 mg
BID@0800,1700 FATEMEH Administration
Sodium Chloride 0 flush 01/14/24 23:00
Sodium Chloride 0.9% (Flush) Syringe IV 02/11/24 22:59
PER PROTOCOL FATEMEH
Home Medications
�Medication �Instructions �Recorded
aspirin 325 mg tablet 325 mg PO DAILY Blood clot 11/19/11
prevention/tx
metformin 1,000 mg tablet 1,000 mg PO BID@0800,1700 diabetes 11/19/11
ezetimibe 10 mg tablet 10 mg PO DAILY High cholesterol 12/29/20
folic acid 1 mg tablet 1 mg PO DAILY Supplement 12/29/20
insulin lispro 100 unit/mL 10 units SC MEALS diabetes 04/24/21
subcutaneous pen (Humalog KwikPen
(U-100) Insulin)
carvedilol 6.25 mg tablet (Coreg) 6.25 mg PO BID Blood Pressure 11/28/21
isosorbide mononitrate 60 mg 60 mg PO BID #60 tabs 11/28/21
tablet,extended release 24 hr
Metoprolol 1 tab PO DAILY 01/14/24
clopidogrel 75 mg tablet 75 mg PO DAILY Blood Clot 01/14/24
Prevention/Tx
insulin glargine-yfgn 100 unit/mL 44 unit SC HS diabetes 01/14/24
(3 mL) subcutaneous pen (Semglee
(insulin glargine-yfgn) Pen)
atorvastatin 80 mg tablet 80 mg PO DAILY High Cholesterol 01/15/24
losartan 25 mg tablet 25 mg PO DAILY Blood Pressure 01/15/24
NIH Stroke Score
Subsequent NIH Scale
Date of Subsequent NIH Scale: 01/15/24
Time of Subsequent NIH Scale: 10:30
NIH Stroke Score
Level of Consciousness: 0 - Alert
LOC Questions: 0-Answers both correctly
LOC Commands: 0-Performs both correctly
Best Horizontal Gaze: 0-Normal
Visual Santos: 0=Normal, no visual loss
Facial Palsy: 0=Normal, symmetrical
Motor - Right Arm: 0=No drift 10 seconds
Motor - Left Arm: 1=Drift < 10 seconds
Motor - Right Le-No drift 5 seconds
Motor - Left Le-Drift < 5 seconds
Limb Ataxia: 0-Absent
Sensation: 1-Mild loss
Best Language: 0-No aphasia
Dysarthria: 1-Mild slurring
Extinction and Inattention: 1-Sensory inattention
Total Score:: 5
Modified [place] (mRS) Score
Modified [place] Scale (mRS): Moderate disability. Requires some help, able to walk unassisted.
Score: 3
Alteplase Contraindication
Inclusion and Exclusion criteria reviewed: Yes

Documented by User: Raul Ignacio MD 01/15/24 14:16
Consultation - Neurology 4
-
CONSULTING PHYSICIAN: Raul Ignacio MD
REFERRING PHYSICIAN: Hospitalists/Dr. Michael
DICTATED BY: HORACIO Stewart
DATE/TIME OF REQUEST: 01/15/24
DATE/TIME OF CONSULTATION: 01/15/24
Reason for Consultation: Left-sided numbness, dysarthria
History of Present Illness:
This is a 53-year-old ambidextrous handed male who has presented to the hospital on 01/14/24 with report of dysarthria and LUE numbness. Patient reports that yesterday (01/14/24) he was at his baseline at work during the day. Around 1900 he reports
that his coworker told him that his speech sounded slurred and then suddenly his left hand started to feel numb and he was dropping things. His coworkers called 911. On arrival in the ER his blood sugar was 490. CT head was obtained and demonstrates
and old right frontoparietal ischemic stroke but no acute abnormalities. NIHSS was 1 for mild loss of sensation. He was not a candidate for TNK/IAT due to low NIHSS. He is taking a full dose aspirin and Plavix 75mg daily for cardiac purposes and
denies missing any doses. He does note that he missed his metformin the evening on 01/13/24 and he forget to take his insulin yesterday morning. He reports having a 'TIA' in the past consisting of dysarthria. He cannot recall exactly when this was but
between 5-10 years ago. He underwent a stroke workup at that time and was told it was unremarkable. He reports that he intermittently has slurred speech which he attributes to fatigue from poor sleep/long work shifts. He also notes that he just
completed a course of oral steroids last week for poison maría elena treatment. He denies any headache, dizziness, swallowing difficulty, weakness, nausea, chest pain, palpitations, and shortness of breath.
Past Medical History: HTN, HLD, NIDDM, DE, CAD, FLORESITA (no cpap)
Surgical History: AICD, cardiac stents
Family History: Reviewed and noncontributory.
Social History: Current daily smoker (3-4 cigarettes daily), occasional alcohol, denies illicit drug use. 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
Allergies: No known allergies.
Home Medications: See below.
Review of Symptoms:
Patient denies any fever, headache, chest pain, shortness of breath, GI or symptoms.
�Per the HPI.�All systems are reviewed negative except above.
Physical Exam:
The patient is afebrile, abdomen is nondistended, breathing is unlabored, skin is warm and dry, no edema.
NIH Stroke Scale:
I performed the NIH stroke scale on the patient on 01/15/24 at 1030. The patient scored 5 points on the NIH stroke scale assessment, which were assigned as follows: See below.
Neurologic Examination:
The patient is awake, alert and oriented x 3. He is able to follow commands and answer questions appropriately. There is no aphasia. There is mild dysarthria. On cranial nerve assessment, pupils are 3 mm bilateral, round and reactive to light and
accommodation. Visual santos are full. Extraocular movements are intact. Facial sensations are intact and bilaterally symmetrical, there is no facial asymmetry. Hearing is intact bilaterally to normal conversation volume. Tongue palate and uvula are
midline. Sternocleidomastoid strengths are full bilaterally. Motor strengths are 5/5 bilateral upper and lower extremities on medical research [place] scale. There is slight drift in the LUE and LLE. No involuntary movement noted. Deep tendon
reflexes are 1+ bilateral upper and lower extremities and Babinski is absent bilaterally. Sensations of touch, temperature and vibration are mildly reduced in the LUE and LLE. There was extinction noted on double simultaneous stimulation in the left
arm and leg. Coordination is intact by finger to nose bilaterally.
Lab Results: See below.
Neuro Imaging:
1. CT Head 01/15/24: No acute intracranial hemorrhage. Old watershed infarct between the right frontal lobe and right parietal lobe, having developed since prior examination. No other abnormal parenchymal attenuation. Aspects score: 10.
Differentials for the patient's presentation include:
1. Left-sided symptoms concerning for acute ischemic infarct vs recrudescence of old right frontoparietal stroke in the setting of hyperglycemia.
2. CT head demonstrates an old large ischemic right frontoparietal lobe infarct.
3. Possible untreated FLORESITA.
4. Nicotine dependence.
5. Uncontrolled NIDDM/medication noncompliance.
Patient has the following risk factors for their symptoms: Hyperglycemia, HTN, HLD, old stroke
IV Tenecteplase/IAT candidacy: He was not a candidate for TNK/IAT due to low NIHSS.
Recommendations:
-Continue home aspirin 325mg and Plavix 75mg PO daily.
-Permissive hypertension SBP<220, DBP<120 until 1900 tonight, then goal normotension.
-MRI brain, MRA COW noncontrast pending.
-Carotid ultrasound pending.
-LDL goal <70. LDL is 191. Continue atorvastatin 80mg and Zetia 10mg daily, will need outpatient evaluation by Cardiology for consideration of PCSK9 inhibitor options.
-Goal normoglycemia, hbA1c is 12.3.
-Checking blood work for metabolic abnormalities.
-NIHSS and neurological checks per unit guidelines.
-Provide patient with a stroke education packet.
-Smoking cessation counseling.
-PT/OT/ST evaluations.
-DVT prophylaxis.
-Will follow pending results.
Discussed patient care with: Dr. Ignacio, the patient
Addendum:
Neurology attending note:
CC: Left sided numbness
53-year-old ambidextrous handed male who has presented to the hospital on 01/14/24 with report of dysarthria and LUE numbness. Patient reports that yesterday (01/14/24) he was at his baseline yesterday. Around 1899 he reports that his coworker told him
that his speech was slurred and his left hand started to feel numb and he was dropping things. His coworkers called 911. On arrival in the ER his blood sugar was 490.
O/E: Patient is awake alert oriented to person place and time speech is fluent comprehension reading and repetition. Cranial nerve exam nonfocal motor examination shows normal tone and strength sensory system examination shows decreased sensation
left side. Reflexes are trace
Assessment and plan: Left-sided numbness secondary to chronic right parietal lobe ischemia
PLAN: Blood sugar control. Blood pressure control. Continue aspirin and Plavix. MRI brain. EEG.
Patient may go home once medically stable
NIH Stroke Score
NIH Stroke Score
Total Score:: 5
Modified [place] (mRS) Score
Score: 3
[2024-01-15 11:32] LABS: Glycohemoglobin (HgbA1c) 12.3 % (4.0-5.6)
--- NOTE | 2024-01-15 11:32 | W.PN.HOSP.TC ---
Today's Communication/Plan
-
MRI
appreciate neuro
Assessment / Plan
Assessment / Plan
IMPRESSION:
53-year-old with history of ischemic cardiomyopathy status post AICD, CAD status post stenting, hypertension, hyperlipidemia, FLORESITA and insulin-dependent diabetes who presents to the emergency department with acute episode of left arm numbness. The
rest of his neurological exam is completely intact. Symptoms been persistent now for the last [address] of the head was unremarkable. His labs were notable for uncontrolled blood glucose of 490. History also suggestive for for
poorly controlled diabetes.
PLAN:
1. Left arm numbness - TIA vs mononeuropathy. D/W Neuro.
- admit to telemetry for possible tia
- continue plavix and aspirin (home meds) per neuro
- continue statin
- mri in am, patient reports device is often deactivated with magnet for MRI
- neuro check q 6 h
2. Uncontrolled DM 2 - Reports degree of non-compliance, did not take insulin today or metformin yesterday. BG 490 in ED.
- check a1c
- continue premeal glucose 10 units ac
- sliding scale achs
- continue metformin
- lantus 30 HS (taking Semglee 44 at home with report of am hypoglycemia)
- f/u with outpatient pmd or endo
3. Ischemic CMP
- aspirin/plavix and statin
- carvedilol
- imdur and losartan
DVT PPX - lovenox sq
Full code
Anticipated Discharge: Within 24 hours
Subjective/Interval History
-
Date of Service: January 15, 2024
left arm numbness/tingling
was dropping phone
overall feels strength improved today
no headache
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
Objective Data
-
Vital Signs:
Vital Signs
Temp Pulse Resp BP Pulse Ox
97.6 F 75 16 123/68 98
01/15/24 07:00 01/15/24 07:00 01/15/24 07:00 01/15/24 07:00 01/15/24 07:00
I&O
01/14/24 01/15/24 01/16/24
06:59 06:59 06:59
Intake Total 480 / 480
Output Total 300 / 300
Balance 180 / 180
Review of Systems
-
History Source: Patient
All other systems: Reviewed and negative
Physical Exam
-
General: No Apparent Distress
HEENT: PERRLA
Respiratory: Clear to Auscultation; Negative Wheezes
Cardiac: Regular Rhythm and S1/S2
GI: Soft and Nontender
Musculoskeletal: No Edema
Skin: Warm and Dry; Negative Rash
Neuro: AO x 3
Psych: Calm
Data Reviewed
-
Diagnostic Radiology: Report Reviewed by me
Labs: Labs Reviewed by me
--- NOTE | 2024-01-15 11:45 | PTOTSP ---
Dysphagia Evaluation
Oral/pharyngeal stages of swallowing suspected to be WFL.
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 Speech/language/cognitive evaluation warranted pending MRI of Brain.
Recommend:
1. Regular, Thin Liquids
2. Medications as best tolerated
3. Further evaluation as outlined above.
[2024-01-15 12:08] LABS: Glucose - Point of Care 229 mg/dl (70-99)
[2024-01-15] MEDS: NOVOLOG FLEXPEN-MODERATE RESISTANCE 3 UNITS SC (12:50)
--- NOTE | 2024-01-15 14:28 | CM ---
food general manager reviewed patient's chart and patient was admitted under OBS, patient is very upset refuses to sign and wants to leave the hospital. Patient lives with spouse in a multi level home patient is independent with adl's and ambulation, no
dme, patient drives.
Pharmacy: [facility]
PCP: Dr Ladarius Steinberg
Plan; Home no needs.
[2024-01-15 16:28] LABS: Glucose - Point of Care 120 mg/dl (70-99)
[2024-01-15 16:32] LABS: Folate 12.8 ng/ml (2.76-20); Vitamin B12 249 pg/ml (239-931)
[2024-01-15] MEDS: LOVENOX 40 MG SC (16:46)
[2024-01-15 21:57] LABS: Glucose - Point of Care 102 mg/dl (70-99)
[2024-01-16] VITALS (8 sets, daily range): BP systolic 116–131; BP diastolic 59–73; PULSE 82; O2SAT 98
[2024-01-16] MEDS: NOVOLOG FLEXPEN-MODERATE RESISTANCE SC ×3 (08:02→16:56)
[2024-01-16 08:03] LABS: Glucose - Point of Care 116 mg/dl (70-99)
[2024-01-16] MEDS: ZETIA 10 MG PO (08:12)
[2024-01-16] MEDS: LIPITOR 80 MG PO (08:12)
[2024-01-16] MEDS: PLAVIX 75 MG PO (08:12)
[2024-01-16] MEDS: IMDUR (EXTENDED RELEASE) 60 MG PO ×2 (08:12→19:56)
[2024-01-16] MEDS: COZAAR 25 MG PO (08:12)
[2024-01-16] MEDS: NOVOLOG FLEXPEN 10 UNITS SC ×2 (08:12→12:36)
[2024-01-16] MEDS: FOLVITE 1 MG PO (08:12)
[2024-01-16] MEDS: GLUCOPHAGE 1000 MG PO ×2 (08:12→16:50)
[2024-01-16] MEDS: ASPIRIN 325 MG PO (08:12)
[2024-01-16] MEDS: COREG 6.25 MG PO ×2 (08:13→19:56)
[2024-01-16] MEDS: VITAMIN B-12 1000 MCG PO (08:21)
--- NOTE | 2024-01-16 11:02 | W.PN.HOSP.TC ---
Today's Communication/Plan
-
likely discharge post MRI
Assessment / Plan
Assessment / Plan
IMPRESSION:
53-year-old with history of ischemic cardiomyopathy status post AICD, CAD status post stenting, hypertension, hyperlipidemia, FLORESITA and insulin-dependent diabetes who presents to the emergency department with acute episode of left arm numbness. The
rest of his neurological exam is completely intact. Symptoms been persistent now for the last [address] of the head was unremarkable. His labs were notable for uncontrolled blood glucose of 490. History also suggestive for for
poorly controlled diabetes.
PLAN:
1. Left arm numbness - TIA vs mononeuropathy. D/W Neuro.
- admit to telemetry for possible tia
- continue plavix and aspirin (home meds) per neuro
- continue statin
- mri in am, patient reports device is often deactivated with magnet for MRI
- neuro check q 6 h
2. Uncontrolled DM 2 - Reports degree of non-compliance, did not take insulin today or metformin yesterday. BG 490 in ED.
- A1c > 12, patient can't bring insulin to work
- continue premeal glucose 10 units ac
- sliding scale achs
- continue metformin
- lantus 30 HS (taking Semglee 44 at home with report of am hypoglycemia)
- f/u with outpatient pmd or endo
3. Ischemic CMP
- aspirin/plavix and statin
- carvedilol
- imdur and losartan
DVT PPX - lovenox sq
Full code
Anticipated Discharge: Within 24 hours
Subjective/Interval History
-
Date of Service: January 16, 2024
left arm feels the same
no new deficits
Objective Data
-
Vital Signs:
Vital Signs
Temp Pulse Resp BP Pulse Ox
99 F 83 16 119/59 95
01/16/24 08:23 01/16/24 08:23 01/16/24 08:23 01/16/24 08:23 01/16/24 08:23
I&O
01/15/24 01/16/24 01/17/24
06:59 06:59 06:59
Intake Total 480 / 480 1440 / 1440
Output Total 300 / 300
Balance 180 / 180 1440 / 1440
Review of Systems
-
History Source: Patient
All other systems: Reviewed and negative
Physical Exam
-
General: No Apparent Distress
HEENT: PERRLA
Respiratory: Clear to Auscultation; Negative Wheezes
Cardiac: Regular Rhythm and S1/S2
GI: Soft and Nontender
Musculoskeletal: No Edema
Skin: Warm and Dry; Negative Rash
Neuro: AO x 3
Psych: Calm
Data Reviewed
-
Diagnostic Radiology: Report Reviewed by me
Labs: Labs Reviewed by me
[2024-01-16 11:28] LABS: Glucose - Point of Care 108 mg/dl (70-99)
--- NOTE | 2024-01-16 12:58 | PTOTSP ---
Addendum entered and electronically signed by ST Jenny 01/16/24 14:14:
Dysphagia Therapy
Oral/pharyngeal swallowing suspected to be WFL. Patient's cognitive/attention changes increase risk for dysphagia.
Recommend:
1. Regular, thin liquids
2. Medications as best tolerated
3. Assist with meal tray set up given concern for left neglect
4. Partial supervision given cognitive changes.
5. Check for clearance on left side of mouth.
6. Dysphagia therapy follow up at the acute care level.
Original Note:
PHYSICIAN CHIEF OF PATHOLOGY Evaluation
Patient with signs concerning for at least mild cognitive linguistic changes (MOCA version 8.1 =20/30; normal is 26 or greater) to visuospatial skills, executive function, attention, language, abstraction, delayed recall, insight/awareness, and
pragmatics.
Recommend:
1. Comprehensive cognitive evaluation after D/C from the acute care level.
Discussed information from eval with nurse, physician, and rehab team (PT, OT).
--- NOTE | 2024-01-16 13:30 | W.DCSUMMARY ---
Discharge Summary
Discharge Data
Date of Admission: 01/16/24
Date of Discharge: 01/17/24
-
Pending Results: No
Hospital Course
Discharging Physician : Dr. Catalina Mix
Disposition : Home
Primary care physician : Dr. Ladarius Steinberg
Principal Discharge diagnosis : Transient Ishemic Attack
Hospital Course :
Mr. Agus Dangelo is a 53 yo man with hx of ischemic cardiomyopathy status post AICD, CAD status post stenting, hypertension, hyperlipidemia, FLORESITA and poorly controlled insulin-dependent diabetes (HgA1c > 12) who presents to the emergency department
with acute episode of left arm numbness. CT of the head was unremarkable. His labs were notable for uncontrolled blood glucose of 490.
He was admitted to observation for further work-up of TIA versus CVA. Maintained on home asa/plavix, [employer] Lipitor dosing increased. Unfortunately deficits progressed with worsening balance, inattention and left-sided neglect. MRI showed large acute
on chronic right MCA territory infarct.
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 We discussed need to evaluate his occupation and make adjustments to take care of his health.
Time spent on discharge was 40 minutes.
Important imaging findings :
HEAD CT
IMPRESSION:
No acute intracranial hemorrhage.
Old watershed infarct between the right frontal lobe and right parietal lobe, having developed since prior examination. No other abnormal parenchymal attenuation.
BRAIN MRI
HEAD MRA
IMPRESSION:
Large acute on chronic right MCA territory infarct. Chronic hemosiderin deposition.
No focal hemodynamically significant stenosis, aneurysm or occlusion.
VASCULAR US
IMPRESSION: Mixed plaque right carotid bulb and internal carotid artery, calcified plaque left carotid bulb. Velocity profiles consistent with less than 50% bilateral internal carotid artery stenosis. Antegrade flow bilateral vertebral arteries.
TTE
CONCLUSIONS
1. Left ventricle: Normal size and function. Severely reduced left
ventricular systolic function. The ventricle is globally hypokinetic with an
estimated ejection fraction of 20-25%.
2. Right ventricle: Normal
3. Atria: Normal
4. Mitral valve: Mild mitral regurgitation
5. Aortic valve: No aortic stenosis or aortic insufficiency
6. Tricuspid valve: No tricuspid regurgitation
7. When compared to the most recent echocardiogram from 04/24/2021, there has
been no significant change
No intracardiac mass or thrombus
Procedure findings :
Discharge Plan
-
Patient Disposition: Acute Rehab Facility
Discharge Diagnosis/Procedures: transient ischemic attack
Diet: Low Cholesterol and Diabetic, Carb Controlled
Activity: As tolerated
Driving Restrictions: As prior to admission
Bathing Restrictions: None
Other Services: PT and OT
Referrals:
Ladarius Steinberg MD [Family Provider] - in less than 1 week
Additional Discharge Medication Instructions: Your Lipitor dosing is increased
You are newly started on Vitamin B12
Prescriptions:
New
atorvastatin 80 mg Tablet
80 mg PO HS Qty: 30 0RF
cyanocobalamin (vitamin B-12) 1,000 mcg Tablet
1,000 mcg PO DAILY Qty: 30 0RF
Continued
aspirin 325 MG tablet
325 mg PO DAILY
metformin 1,000 MG tablet
1,000 mg PO BID@0800,1700
folic acid 1 MG tablet
1 mg PO DAILY
ezetimibe 10 MG tablet
10 mg PO DAILY
insulin lispro [Humalog KwikPen Insulin] 100 UNIT/ML insulin pen
10 units SC MEALS
carvedilol [Coreg] 6.25 mg Tablet
6.25 mg PO BID
isosorbide mononitrate 60 mg tablet extended release 24 hr
60 mg PO BID Qty: 60 6RF
Rx Instructions:
Increase Imdur to 60 mg twice a day
clopidogrel 75 mg tablet
75 mg PO DAILY
insulin glargine-yfgn [Semglee(insulin glarg-yfgn)Pen] 100 unit/mL (3 mL) insulin pen
44 unit SC HS
Metoprolol
1 tab PO DAILY
atorvastatin 80 mg Tablet
80 mg PO DAILY
losartan 25 mg Tablet
25 mg PO DAILY
Discharge Orders:
Discharge Patient (As Directed); Ordered 01/17/24
Ordered By: Catalina Mix
Discharge Date and Time
Print Language: SLOVENIAN
--- NOTE | 2024-01-16 15:27 | W.PN.NEURO.1 ---
Today's Communication / Plan
-
.
Neuro Assessment/Plan
Assessment
This is a 53-year-old ambidextrous handed male who has presented to the hospital on 01/14/24 with report of dysarthria and LUE numbness. On arrival in the ER his blood sugar was 490. CT head was obtained and demonstrates and old right frontoparietal
ischemic stroke but no acute abnormalities. NIHSS was 1 for mild loss of sensation. He was not a candidate for TNK/IAT due to low NIHSS. He is taking a full dose aspirin and Plavix 75mg daily for cardiac purposes and denies missing any doses. He
does note that he missed his metformin the evening on 01/13/24 and he forget to take his insulin yesterday morning.
-CT Head 01/15/24: No acute intracranial hemorrhage. Old watershed infarct between the right frontal lobe and right parietal lobe, having developed since prior examination. No other abnormal parenchymal attenuation. Aspects score: 10.
1. Left-sided symptoms concerning for acute ischemic infarct vs recrudescence of old right frontoparietal stroke in the setting of hyperglycemia.
2. CT head demonstrates an old large ischemic right frontoparietal lobe infarct.
3. Possible untreated FLORESITA.
4. Nicotine dependence.
5. Uncontrolled NIDDM/medication noncompliance.
Plan
-Continue home aspirin 325mg and Plavix 75mg PO daily.
-Goal normotension.
-MRI brain, MRA COW noncontrast pending.
-Carotid ultrasound pending.
-LDL goal <70. LDL is 191. Continue atorvastatin 80mg and Zetia 10mg daily, will need outpatient evaluation by Cardiology for consideration of PCSK9 inhibitor options.
-Goal normoglycemia, hbA1c is 12.3.
-Checking blood work for metabolic abnormalities.
-NIHSS and neurological checks per unit guidelines.
-Provide patient with a stroke education packet.
-Smoking cessation counseling.
-Vitamin B12 level is low at 249, cyanocobalamin 1000mcg PO daily initiated.
-PT/OT/ST evaluations.
-DVT prophylaxis.
-Will follow pending results.
Subjective/Objective
Subjective Data
Date of Service: January 16, 2024
No acute events overnight. Patient offers little insight to his current symptoms, reports that he just wants to 'get out of here.'
Objective Data
Vital Signs
Temp Pulse Resp BP Pulse Ox
98.4 F 84 18 129/64 95
01/16/24 11:41 01/16/24 11:41 01/16/24 11:41 01/16/24 11:41 01/16/24 11:41
Lab Results
01/14/24 20:17
01/14/24 20:17
Sodium 136 mmol/L (135-145) 01/14/24 20:17
Potassium 4.4 mmol/L (3.5-5.1) 01/14/24 20:17
BUN 12 mg/dl (9-20) 01/14/24 20:17
Glucose 492 mg/dl (70-99) H* 01/14/24 20:17
Calcium 9.5 mg/dl (8.4-10.2) 01/14/24 20:17
LDL Cholesterol, Calc 191 mg/dl 01/15/24 06:38
Vitamin B12 249 pg/ml (239-931) 01/15/24 06:38
Patient Allergies
No Known Allergies Allergy (Verified 09/15/23 07:05)
LDL Level: >70, statin ordered
Review of Systems
-
History Source: Patient
EENT: Negative Blurry Vision, Decreased Vision or Swallowing Difficulty
Respiratory: Negative Cough or Trouble Breathing
Cardiac: Negative Chest Pain or Palpitations
Abdomen/GI: Negative Nausea
Neuro: Ataxia; Negative Dizzy, Headache, Weakness, Numbness, Tremors or Speech Problem
Physical Exam
-
General: No Apparent Distress
Eyes: No Ptosis and PERRLA
HEENT: Normocephalic and Atraumatic
Neck: Full Range of Motion
Respiratory: No Dyspnea
GI: Non-distended
Extremities: No Clubbing, No Cyanosis and No Edema
Extended Neurological Exam
Mood & Affect: Other (flat affect)
Attention Span & Concentration: Awake, Alert, Interactive and No Difficulty with 2 Step Request
Memory: Unremarkable (AAOx3) and Able to Recall
Tremor: Hand Tremor Absent and Head Tremor Absent
Involuntary Movement: None
Speech: Rate of Production Unremarkable and Dysarthric
Cranial Nerve II: Left Eye: Pupillary Reactivity Unremarkable, Pupillary Size Unremarkable and Visual Santos Intact
Cranial Nerve II: Right Eye: Pupillary Reactivity Unremarkable, Pupillary Size Unremarkable and Visual Santos Intact
Cranial Nerves III, IV, : Extraocular Movement: Extraocular Movement Full in all Directions
Cranial Nerve V: Facial Sensation: Intact to Light Touch
Cranial Nerve VII: Facial Symmetry: Normal Facial Symmetry
Cranial Nerve VIII: Hearing: Unremarkable Hearing to Normal Conversational Volume
Cranial Nerves IX, X: Palate Movement: Palate Elevation Symmetric
Cranial Nerve XI: Shoulder Shrug: Unremarkable
Cranial Nerve XII: Tongue Protusion: Midline
Muscle Strength, Overall: Reduced on Left (LUE 5-/5, LLE 4+/5)
Muscle Bulk & Tone: Bulk Unremarkable and Tone Unremarkable
Pronator Drift: Drift in Left Upper Extremity and Drift in Left Lower Extremity
Touch Sensation: Double Simultaneous Stimulation Absent (on the left side)
Coordination: Uaekeg-czeh-hyphmu Testing Unremarkable
Babinski Sign: Absent Bilaterally
Modified [place] Score (MRS)
-
Modified [place] Scale (mRS): Slight disability. Able to look after own affairs.
Score: 2
Data Reviewed
-
CT Head: Report Reviewed and Image Reviewed
MRI Head: Pending
MRA Head: Pending
Carotid Ultrasound: Pending
Labs: Report Reviewed
Lipid Profile: Report Reviewed
HgbA1C: Report Reviewed
Reviewed with: Physician and Patient
Medications
-
Active Medications
Generic Name Dose Route Start Last Admin
Trade Name Freq PRN Reason Stop Dose Admin
Acetaminophen 650 mg 01/14/24 23:28 01/15/24 16:52
Acetaminophen 325 Mg Tablet PO 02/11/24 23:27 650 mg
Q6HPRN PRN Administration
mild pain/ fever>100.5F
Acetaminophen 650 mg 01/15/24 00:55
Acetaminophen 650 Mg Rectal Suppository RECTAL 02/12/24 00:54
Q4HPRN PRN
[place], mild pain, or temp >100.4F
Acetaminophen 650 mg 01/15/24 00:55
Acetaminophen 325 Mg Tablet PO 02/12/24 00:54
Q4HPRN PRN
[place], mild pain, or temp >100.4F
Aspirin 325 mg 01/15/24 08:00 01/16/24 08:12
Aspirin 325 Mg Tablet PO 02/12/24 07:59 325 mg
DAILY FATEMEH Administration
Atorvastatin Calcium 80 mg 01/15/24 08:00 01/16/24 08:12
Atorvastatin (Lipitor) 80 Mg Tablet PO 02/12/24 07:59 80 mg
DAILY FATEMEH Administration
Carvedilol 6.25 mg 01/15/24 08:00 01/16/24 08:13
Carvedilol 6.25 Mg Tablet PO 02/12/24 07:59 6.25 mg
BID FATEMEH Administration
Clopidogrel Bisulfate 75 mg 01/15/24 08:00 01/16/24 08:12
Clopidogrel 75 Mg Tablet PO 02/12/24 07:59 75 mg
DAILY FATEMEH Administration
Cyanocobalamin 1,000 mcg 01/16/24 09:00 01/16/24 08:21
Cyanocobalamin 1,000 Mcg Tablet PO 02/13/24 08:59 1,000 mcg
DAILY FATEMEH Administration
Dextrose 12.5 grams 01/15/24 00:55
Dextrose 50% (0.5 Grams/Ml) 50 Ml Syringe IV 02/12/24 00:54
[id number] PRN
hypoglycemia
Protocol
Ezetimibe 10 mg 01/15/24 08:00 01/16/24 08:12
Ezetimibe (Zetia) 10 Mg Tablet PO 02/12/24 07:59 10 mg
DAILY FATEMEH Administration
Enoxaparin Sodium 40 mg 01/15/24 18:00 01/15/24 16:46
Enoxaparin Sodium 40 Mg/0.4 Ml Syringe SC 02/12/24 17:59 40 mg
QPM FATEMEH Administration
Folic Acid 1 mg 01/15/24 08:00 01/16/24 08:12
Folic Acid 1 Mg Tablet PO 02/12/24 07:59 1 mg
DAILY FATEMEH Administration
Glucagon 1 mg 01/15/24 00:55
Glucagon 1 Mg Vial IM 02/12/24 00:54
PRN PRN
hypoglycemia
Protocol
Insulin Glargine 30 units/ 0.3 mls @ 0 mls/hr 01/15/24 22:00 01/15/24 21:57
Device SC 02/12/24 21:59 0.3 mls
HS FATEMEH Administration
As Directed
Insulin Aspart 0 units 01/15/24 07:30 01/16/24 12:26
Insulin Aspart Moderate Resistance 300 Units/3 Ml Pen.Injctr SC 02/12/24 07:29 Not Given
AC FATEMEH
Protocol
Insulin Aspart 10 units 01/15/24 07:30 01/16/24 12:36
Insulin Aspart (100 Units/Ml) 3 Ml Flexpen SC 02/12/24 07:29 10 units
AC FATEMEH Administration
Isosorbide Mononitrate 60 mg 01/15/24 08:00 01/16/24 08:12
Isosorbide Mononitrate 60 Mg Extended Release Tablet PO 02/12/24 07:59 60 mg
BID FATEMEH Administration
Losartan Potassium 25 mg 01/15/24 08:00 01/16/24 08:12
Losartan 25 Mg Tablet PO 02/12/24 07:59 25 mg
DAILY FATEMEH Administration
Metformin HCl 1,000 mg 01/15/24 08:00 01/16/24 08:12
Metformin 1000 Mg Regular Release Tablet PO 02/12/24 07:59 1,000 mg
BID@0800,1700 FATEMEH Administration
Sodium Chloride 0 flush 01/14/24 23:00
Sodium Chloride 0.9% (Flush) Syringe IV 02/11/24 22:59
PER PROTOCOL FATEMEH
Home Medications
�Medication �Instructions �Recorded
aspirin 325 mg tablet 325 mg PO DAILY Blood clot 11/19/11
prevention/tx
metformin 1,000 mg tablet 1,000 mg PO BID@0800,1700 diabetes 11/19/11
ezetimibe 10 mg tablet 10 mg PO DAILY High cholesterol 12/29/20
folic acid 1 mg tablet 1 mg PO DAILY Supplement 12/29/20
insulin lispro 100 unit/mL 10 units SC MEALS diabetes 04/24/21
subcutaneous pen (Humalog KwikPen
(U-100) Insulin)
carvedilol 6.25 mg tablet (Coreg) 6.25 mg PO BID Blood Pressure 11/28/21
isosorbide mononitrate 60 mg 60 mg PO BID #60 tabs 11/28/21
tablet,extended release 24 hr
Metoprolol 1 tab PO DAILY 01/14/24
clopidogrel 75 mg tablet 75 mg PO DAILY Blood Clot 01/14/24
Prevention/Tx
insulin glargine-yfgn 100 unit/mL 44 unit SC HS diabetes 01/14/24
(3 mL) subcutaneous pen (Semglee
(insulin glargine-yfgn) Pen)
atorvastatin 80 mg tablet 80 mg PO DAILY High Cholesterol 01/15/24
losartan 25 mg tablet 25 mg PO DAILY Blood Pressure 01/15/24
atorvastatin 80 mg tablet 80 mg PO HS #30 tabs 01/16/24
cyanocobalamin (vitamin B-12) 1,000 mcg PO DAILY #30 tabs 01/16/24
1,000 mcg tablet
NIH Stroke Score
Subsequent NIH Scale
Date of Subsequent NIH Scale: 01/16/24
Time of Subsequent NIH Scale: 11:30
NIH Stroke Score
Level of Consciousness: 0 - Alert
LOC Questions: 0-Answers both correctly
LOC Commands: 0-Performs both correctly
Best Horizontal Gaze: 0-Normal
Visual Santos: 0=Normal, no visual loss
Facial Palsy: 0=Normal, symmetrical
Motor - Right Arm: 0=No drift 10 seconds
Motor - Left Arm: 1=Drift < 10 seconds
Motor - Right Le-No drift 5 seconds
Motor - Left Le-Drift < 5 seconds
Limb Ataxia: 0-Absent
Sensation: 1-Mild loss
Best Language: 0-No aphasia
Dysarthria: 1-Mild slurring
Extinction and Inattention: 1-Sensory inattention
Total Score:: 5
Modified [place] (mRS) Score
Modified Lanette Scale (mRS): Slight disability. Able to look after own affairs.
Score: 2
--- NOTE | 2024-01-16 15:28 | CM ---
met with patient at bedside.patient with left arm weakness-possible tia,cont asa/plavix,on insulin /metformin,for mri brain,seen by therapy who recommended acute rehab-referral sent to [facility] via [facility]. referral made to dr monteiro by
attending..possible dc tomorrow to acute rehab.patient will need insurance auth.
[2024-01-16] MEDS: LOVENOX 40 MG SC (16:50)
[2024-01-16] MEDS: TYLENOL 650 MG PO (16:50)
[2024-01-16 16:55] LABS: Glucose - Point of Care 107 mg/dl (70-99)
[2024-01-16] MEDS: NOVOLOG FLEXPEN SC (16:57)
--- NOTE | 2024-01-16 18:52 | CON.MD ---
Documented by User: Vanda Ken MD, Resident 01/17/24 14:27
Consultation - Medical
-
Referring Provider: Dominguez Foy,
Chief Complaint:CVA
History of Present Illness:
53-year-old male presented to ER on 01/14/24 via ambulance due to episode of slurred speech, lightheadedness, tingling and numbness upper extremity. On arrival his blood sugar level was found 490. CT Head was obtained and demonstrated an old right
frontoparietal ischemic stroke but no acute abnormalities and NIHSS was scored as 1. The patient has been on aspirin and Plavix for cardiac issues and neurology recommended to continue these medications. The patient was seen by me in his bed and
reported that he is willing to receive rehab at [facility] which is close to his home.
Past Medical History: CAD, HTN, Hypercholesterolemia, IDDM, [place], FLORESITA
Procedure History: Cardiac (4 vessel stent placement) and Orthopedic (right shoulder surgery)
Family History: Noncontributory
Social History:
Functional Level Premorbidly: Independent with all activities
Functional Level Currently: Bed Mobility: -Supine to sit- Minimal assistance, -Sit to supine- Minimal assistance, Transfer: -Sit to stand- Minimal assistance-Stand to sit- Moderate assistance, Ambulation: Patient ambulated 40 ftx 2 with RW and Min A
x1 with second person for safety
Tobacco: Smoker
Alcohol: Occasional
Drug: Denies
Lives with:
24-hour assistance available:
Number of floors:Multiple
# steps to enter:0
# steps to second floor:
Potential First floor set up:available
Driving: Yes
Occupation: Works
Allergies
Allergy/AdvReac Type Severity Reaction Status Date / Time
No Known Allergies Allergy Verified 09/15/23 07:05
Home Medications
aspirin 325 mg tablet 325 mg PO DAILY Blood clot prevention/tx 11/19/11
metformin 1,000 mg tablet 1,000 mg PO BID@0800,1700 diabetes 11/19/11
ezetimibe 10 mg tablet 10 mg PO DAILY High cholesterol 12/29/20
folic acid 1 mg tablet 1 mg PO DAILY Supplement 12/29/20
insulin lispro 100 unit/mL subcutaneous pen (Humalog KwikPen (U-100) Insulin) 10 units SC MEALS diabetes 04/24/21
carvedilol 6.25 mg tablet (Coreg) 6.25 mg PO BID Blood Pressure 11/28/21
isosorbide mononitrate 60 mg tablet,extended release 24 hr 60 mg PO BID #60 tabs 11/28/21
Metoprolol 1 tab PO DAILY 01/14/24
clopidogrel 75 mg tablet 75 mg PO DAILY Blood Clot Prevention/Tx 01/14/24
insulin glargine-yfgn 100 unit/mL (3 mL) subcutaneous pen (Semglee (insulin glargine-yfgn) Pen) 44 unit SC HS diabetes 01/14/24
atorvastatin 80 mg tablet 80 mg PO DAILY High Cholesterol 01/15/24
losartan 25 mg tablet 25 mg PO DAILY Blood Pressure 01/15/24
atorvastatin 80 mg tablet 80 mg PO HS #30 tabs 01/16/24
cyanocobalamin (vitamin B-12) 1,000 mcg tablet 1,000 mcg PO DAILY #30 tabs 01/16/24
Review of Systems:
Constitutional: (x) Normal _
Eye: (x) Normal _
Ear/Nose/Throat: (x) Normal _
Respiratory: (x) Normal _
Cardiovascular: (x) Normal _
Gastrointestinal: (x) Normal _
Genitourinary: (x) Normal _
Musculoskeletal: (x) Normal _
Integumentary: (x) Normal _
Neurologic: (x) Left sided hemiparesis and Mild Dysarthria
Psychiatric: (x) Normal _
Endocrine: (x) Normal _
Hematologic/Lymphatic: (x) Normal _
Allergic/Immunologic: (x) Normal _
Vitals:
Vital Signs
Temp Pulse Resp BP Pulse Ox
98.1 F 80 16 113/67 95
01/17/24 07:10 01/17/24 07:10 01/17/24 07:10 01/17/24 07:10 01/17/24 07:10
Physical Exam:
General Appearance/Observation: Well-developed, well-nourished individual in no apparent distress.
Pain/Comfort Assessment: Denies
Mood/Affect:Appropriate
Integumentary/Operative Site:
Pressure Ulcer Evaluation: absent over heels.
Eyes: Conjunctiva/Lids: normal Pupils: pupils equal round and reactive to light and Accommodation
Ears/Nose/Throat: oral mucosa moist, throat clear. Lips/Teeth/Gums: normal
Neck: No muscle spasm or tenderness
Cardiovascular: Heart: regular, no murmur
Pulses: dorsalis pedis 2+ bilaterally
Respiratory: Respiratory Effort/Chest Expansion: normal Auscultation: Clear to auscultation bilaterally
Gastrointestinal: abdomen not tender, no distension, normal abdominal bowel sounds
Genitourinary: No Waite
Rectal Exam: Deferred
Extremities: Edema: None Cyanosis: None Trophic changes: None
Neurology Exam:
Orientation: Alert, Oriented to self, Time, Place
Memory: Intact immediately
Two step command: Intact
Naming: Intact
Cranial Nerves:
CNII: Pupillary light reflex: Intact Visual Field: Intact
CN III, IV, : Extraocular muscles: Intact
CN V: Facial Sensation at Forehead: Intact, Maxilla: Intact, Mandible: Intact
CN VII: Facial movement: Symmetric
CN VIII: Hearing: Normal
CN IX/X: Speech & swallow: Normal, Position of Uvula: Midline
CN XI: Shoulder shrug: Symmetric
CN XII: Tongue protrusion: Midline
Sensory:
Light touch: No difference of sensations of touch between extremities
Reflexes:
Biceps: 2+ bilaterally
Brachioradialis: 2+ bilaterally
Triceps: 2+ bilaterally
Patellar: 2+ bilaterally
Achilles: 2+ bilaterally
Babinski: Absent bilaterally
Clonus: None
Richy: Negative bilaterally
Cerebellar: Dysmetria/Ataxia: No dysmetria bilaterally
Musculoskeletal:
Pronator Drift on the left side
Motor: (Manual muscle scale 0-5)
Muscle SA EF WE EE FF FA HF KE DF EHL PF
Right 5 5 5 5 5 5 5 5 5 5
Left 5 4(+) 4(+) 4(+) 4(+) 4 4(+) 4(+) 4(+) 4(+)
Tone: Normal in all extremities
Range of Motion: Passively within normal limits in all extremities
Lab Results
Laboratory Data
Total Bilirubin 0.5 mg/dl (0.2-1.3) 01/14/24 20:17
AST 16 U/L (17-59) L 01/14/24 20:17
ALT 15 U/L (0-50) 01/14/24 20:17
Alkaline Phosphatase 131 U/L (38-126) H 01/14/24 20:17
Lab Results - Hematology
01/14/24
20:17
WBC 10.8
Lab Results - Chemistry
01/14/24
20:17
BUN 12
Creatinine 1.0
Estimated Creat Clear 97
Albumin 4.3
01/14/24
20:17
Lactic Acid 1.5
Lab Results - Urine
01/14/24
20:23
Urine Nitrite (Reflex) Negative
Leukocyte Esterase Rfl Negative
Diagnostic Results: as per HPI
Head CT 01/14/24: IMPRESSION: No acute intracranial hemorrhage. Old watershed infarct between the right frontal lobe and right parietal lobe, having developed since prior examination. No other abnormal parenchymal attenuation.
Vascular US 01/15/24: IMPRESSION: Mixed plaque right carotid bulb and internal carotid artery, calcified plaque left carotid bulb. Velocity profiles consistent with less than 50% bilateral internal carotid artery stenosis. Antegrade flow bilateral
vertebral arteries.
Brain MRI 01/16/24: IMPRESSION: Large acute on chronic right MCA territory infarct. Chronic hemosiderin deposition. No focal hemodynamically significant stenosis, aneurysm or occlusion.
Head MRI 01/16/24: IMPRESSION: Large acute on chronic right MCA territory infarct. Chronic hemosiderin deposition. No focal hemodynamically significant stenosis, aneurysm or occlusion.
Assessment
The patient is a 53 year old male who presented to ER on 01/14/24 complaining from slurred speech and numbness on his left side. The patient has a PMH of CAD, HTN, Hypercholesterolemia, IDDM, [place], FLORESITA and has been on blood thinners due his cardiac
problems. The patient was recommended to continue aspirin and Plavix by neuro.
Plan
Acute Rehab would increase independence with ADLs, improve balance, coordination, endurance, strength, mobility, community reintegration, decreased burden of care on others and family education.
CVA: Secondary prophylaxis with Plavix, aspirin, statin, and blood pressure control (SBP less than 180 and diastolic less than 100 to participate with therapy for ischemic stroke). Continue to monitor neurologic status.
Left nondominant hemiparesis: High risk for falls and sliding out of chair/bed. Safety reinforced.
- Avoid using affected arm to help lift or pull patient as this will cause trauma to the shoulder.
Left Neglect: makes patient at increased risk for falls. Will need therapy to work on scanning of environment for safe navigation.
Safety: Continue to reinforce assistance with all transfers.
Dysphagia: speech evaluation, oral care protocol, chlorhexidine rinse after meals and HS, aspiration precautions. Advance diet as tolerated.
Dysarthria: speech evaluation
DM Type 2:Hgb A1c > 12, continue premeal glucose 10 units ac, sliding scale achs, continue metformin , lantus 30 HS (taking Semglee 44 at home with report of am hypoglycemia) - f/u with outpatient pmd or endo
HLD: LDL goal <70. LDL is 191. Continue atorvastatin 80mg and Zetia 10mg daily, will need outpatient evaluation by Cardiology for consideration of PCSK9 inhibitor options.
Vitamin B12 Deficiency: was found 249, cyanocobalamin 1000mcg PO daily
Ischemic CMP : aspirin/plavix and statin, carvedilol, imdur and losartan
GERD: PPI
Pulmonary: Incentive spirometry
Skin: monitor for pressure sores/rashes/lesions.
Pain: acetaminophen as needed.
DVT Prophylaxis:Mechanical and lovenox sq
Obesity: Continue to university counselor patient about diet adjustments to control obesity. Body habitus and increased force to move body and extremities causes further difficulty with functional tasks.
FLORESITA: CPAP recc
Bladder: Time void, PVRs, PRN straight cath.
Code Status: Full code
Functional and Medical Goals: Modified Independent with ADL�s, ambulation, transfers
Dispo (date/plan/equipment needs): Acute Rehab
Summary of recommendations:
Discharge Destination: Acute inpatient rehabilitation
Please do not hesitate to contact me with any questions or concerns. Thanks Dr Sage for involving me in this patient`s care.
Vanda Ken MD
[facility]

Documented by User: Tk Sage MD 01/17/24 14:39
Consultation - Medical
-
Referring Provider: Dominguez Foy,
Chief Complaint:CVA
History of Present Illness:
53-year-old male presented to ER on 01/14/24 via ambulance due to episode of slurred speech, lightheadedness, tingling and numbness upper extremity. On arrival his blood sugar level was found 490. CT Head was obtained and demonstrated an old right
frontoparietal ischemic stroke but no acute abnormalities and NIHSS was scored as 1. The patient has been on aspirin and Plavix for cardiac issues and neurology recommended to continue these medications. The patient was seen by me in his bed and
reported that he is willing to receive rehab at [facility] which is close to his home.
Past Medical History: CAD, HTN, Hypercholesterolemia, IDDM, [place], FLORESITA
Procedure History: Cardiac (4 vessel stent placement) and Orthopedic (right shoulder surgery)
Family History: Noncontributory
Social History:
Functional Level Premorbidly: Independent with all activities
Functional Level Currently: Bed Mobility: -Supine to sit- Minimal assistance, -Sit to supine- Minimal assistance, Transfer: -Sit to stand- Minimal assistance-Stand to sit- Moderate assistance, Ambulation: Patient ambulated 40 ftx 2 with RW and Min A
x1 with second person for safety
Tobacco: Smoker
Alcohol: Occasional
Drug: Denies
Lives with:
24-hour assistance available:
Number of floors:Multiple
# steps to enter:0
# steps to second floor:
Potential First floor set up:available
Driving: Yes
Occupation: Works
Allergies
Allergy/AdvReac Type Severity Reaction Status Date / Time
No Known Allergies Allergy Verified 09/15/23 07:05
Home Medications
aspirin 325 mg tablet 325 mg PO DAILY Blood clot prevention/tx 11/19/11
metformin 1,000 mg tablet 1,000 mg PO BID@0800,1700 diabetes 11/19/11
ezetimibe 10 mg tablet 10 mg PO DAILY High cholesterol 12/29/20
folic acid 1 mg tablet 1 mg PO DAILY Supplement 12/29/20
insulin lispro 100 unit/mL subcutaneous pen (Humalog KwikPen (U-100) Insulin) 10 units SC MEALS diabetes 04/24/21
carvedilol 6.25 mg tablet (Coreg) 6.25 mg PO BID Blood Pressure 11/28/21
isosorbide mononitrate 60 mg tablet,extended release 24 hr 60 mg PO BID #60 tabs 11/28/21
Metoprolol 1 tab PO DAILY 01/14/24
clopidogrel 75 mg tablet 75 mg PO DAILY Blood Clot Prevention/Tx 01/14/24
insulin glargine-yfgn 100 unit/mL (3 mL) subcutaneous pen (Semglee (insulin glargine-yfgn) Pen) 44 unit SC HS diabetes 01/14/24
atorvastatin 80 mg tablet 80 mg PO DAILY High Cholesterol 01/15/24
losartan 25 mg tablet 25 mg PO DAILY Blood Pressure 01/15/24
atorvastatin 80 mg tablet 80 mg PO HS #30 tabs 01/16/24
cyanocobalamin (vitamin B-12) 1,000 mcg tablet 1,000 mcg PO DAILY #30 tabs 01/16/24
Review of Systems:
Constitutional: (x) abNormal _fatigue
Eye: (x) Normal _
Ear/Nose/Throat: (x) Normal _
Respiratory: (x) Normal _
Cardiovascular: (x) Normal _
Gastrointestinal: (x) Normal _
Genitourinary: (x) Normal _
Musculoskeletal: (x) Normal _
Integumentary: (x) Normal _
Neurologic: (x) Left sided weakness and Mild speech difficulty, tingling on the left side improving.
Psychiatric: (x) Normal _
Endocrine: (x) Normal _
Hematologic/Lymphatic: (x) Normal _
Allergic/Immunologic: (x) Normal _
Vitals:
Vital Signs
Temp Pulse Resp BP Pulse Ox
98.1 F 80 16 113/67 95
01/17/24 07:10 01/17/24 07:10 01/17/24 07:10 01/17/24 07:10 01/17/24 07:10
Physical Exam:
General Appearance/Observation: Well-developed, well-nourished male in no apparent distress.
Pain/Comfort Assessment: Denies
Mood/Affect:Appropriate
Integumentary/Operative Site: No lesions noted during course of exam
Eyes: Conjunctiva/Lids: normal Pupils: pupils equal round and reactive to light and Accommodation
Ears/Nose/Throat: oral mucosa moist, throat clear. Lips/Teeth/Gums: normal
Neck: No muscle spasm or tenderness
Cardiovascular: Heart: regular, no murmur
Pulses: dorsalis pedis 2+ bilaterally
Respiratory: Respiratory Effort/Chest Expansion: normal Auscultation: Clear to auscultation bilaterally
Gastrointestinal: abdomen not tender, no distension, normal abdominal bowel sounds
Genitourinary: No Waite
Extremities: Edema: None Cyanosis: None Trophic changes: None
Neurology Exam:
Orientation: Alert, Oriented to self, Time, Place
Memory: Intact immediately
Two step command: Intact
Naming: Intact
Cranial Nerves:
CNII: Pupillary light reflex: Intact Visual Field: Intact
CN III, IV, : Extraocular muscles: Intact, left eye strabismus
CN V: Facial Sensation at Forehead: Intact, Maxilla: Intact, Mandible: Intact
CN VII: Facial movement: Symmetric
CN VIII: Hearing: Normal
CN IX/X: Speech & swallow: Normal, Position of Uvula: Midline
CN XI: Shoulder shrug: Symmetric
CN XII: Tongue protrusion: Midline
Sensory:
Light touch: Decreased sensation left upper and lower extremity compared to right.
Reflexes:
Biceps: 2+ bilaterally
Brachioradialis: 2+ bilaterally
Triceps: 2+ bilaterally
Patellar: 2+ bilaterally
Achilles: 2+ bilaterally
Babinski: Absent bilaterally
Clonus: None
Richy: Negative bilaterally
Cerebellar: Dysmetria/Ataxia: No dysmetria bilaterally
Musculoskeletal:
Pronator Drift on the left side
Motor: (Manual muscle scale 0-5)
Muscle SA EF WE EE FF FA HF KE DF EHL PF
Right 5 5 5 5 5 5 5 5 5 5 5
Left 5 4(+) 4(+) 4(+) 4(+) 4 4(+) 4(+) 4(+) 4(+) 5
Tone: Normal in all extremities
Range of Motion: Passively within normal limits in all extremities, except for right shoulder decreased.
Lab Results
Laboratory Data
01/14/24 20:17
01/14/24 20:17
Total Bilirubin 0.5 mg/dl (0.2-1.3) 01/14/24 20:17
AST 16 U/L (17-59) L 01/14/24 20:17
ALT 15 U/L (0-50) 01/14/24 20:17
Alkaline Phosphatase 131 U/L (38-126) H 01/14/24 20:17
Total Protein 6.4 g/dl (6.3-8.2) 01/14/24 20:17
Albumin 4.3 g/dl (3.5-5.0) 01/14/24 20:17
Diagnostic Results: as per HPI
Head CT 01/14/24: IMPRESSION: No acute intracranial hemorrhage. Old watershed infarct between the right frontal lobe and right parietal lobe, having developed since prior examination. No other abnormal parenchymal attenuation.
Vascular US 01/15/24: IMPRESSION: Mixed plaque right carotid bulb and internal carotid artery, calcified plaque left carotid bulb. Velocity profiles consistent with less than 50% bilateral internal carotid artery stenosis. Antegrade flow bilateral
vertebral arteries.
Brain MRI 01/16/24: IMPRESSION: Large acute on chronic right MCA territory infarct. Chronic hemosiderin deposition. No focal hemodynamically significant stenosis, aneurysm or occlusion.
Head MRI 01/16/24: IMPRESSION: Large acute on chronic right MCA territory infarct. Chronic hemosiderin deposition. No focal hemodynamically significant stenosis, aneurysm or occlusion.
Assessment
The patient is a 53 year old male who presented to ER on 01/14/24 complaining from slurred speech and numbness on his left side. The patient has a PMH of CAD, HTN, Hypercholesterolemia, IDDM, [place], FLORESITA and has been on blood thinners due his cardiac
problems. The patient was recommended to continue aspirin and Plavix by neuro.
Plan
PM&R: PT/OT/speech. Acute Rehab would increase independence with ADLs, improve balance, coordination, endurance, strength, mobility, community reintegration, decreased burden of care on others and family education.
CVA: Secondary prophylaxis with Plavix, aspirin, statin, and blood pressure control (SBP less than 180 and diastolic less than 100 to participate with therapy for ischemic stroke). Continue to monitor neurologic status.
Left nondominant hemiparesis: High risk for falls and sliding out of chair/bed. Safety reinforced.
- Avoid using affected arm to help lift or pull patient as this will cause trauma to the shoulder.
Right shoulder decreased range of motion: Secondary to prior rotator cuff surgery.
Safety: Continue to reinforce assistance with all transfers.
Dysarthria: speech
Uncontrolled DM Type 2:Hgb A1c > 12, continue premeal glucose 10 units ac, sliding scale achs, continue metformin , lantus 30 HS (taking Semglee 44 at home with report of am hypoglycemia) - f/u with outpatient pmd or endo
HLD: LDL goal <70. LDL is 191. Continue atorvastatin 80mg and Zetia 10mg daily, will need outpatient evaluation by Cardiology for consideration of PCSK9 inhibitor options.
Vitamin B12 Deficiency: was found 249, cyanocobalamin 1000mcg PO daily
Ischemic cardiomyopathy: aspirin/plavix and statin, carvedilol, imdur and losartan
GERD: PPI
Pulmonary: Incentive spirometry
Skin: monitor for pressure sores/rashes/lesions.
Pain: acetaminophen as needed.
DVT Prophylaxis:Mechanical and lovenox sq
Morbid obesity: Continue to university counselor patient about diet adjustments to control obesity. Body habitus and increased force to move body and extremities causes further difficulty with functional tasks.
FLORESITA: CPAP recc
Bladder: Time void, PVRs, PRN straight cath.
Code Status: Full code
Functional and Medical Goals: Modified Independent with ADL�s, ambulation, transfers
Dispo (date/plan/equipment needs): Acute Rehab
Summary of recommendations:
Discharge Destination: Acute inpatient rehabilitation
Left nondominant hemiparesis: PT/OT
Dysarthria: speech
Uncontrolled DM Type 2: Adjust insulin for better control.
Morbid obesity: Continue to university counselor patient about diet adjustments to control obesity. Body habitus and increased force to move body and extremities causes further difficulty with functional tasks.
Vitamin B12 Deficiency: was found 249, cyanocobalamin 1000mcg PO daily
Ischemic cardiomyopathy: aspirin/plavix and statin, carvedilol, imdur and losartan
Please do not hesitate to contact me with any questions or concerns. Thanks Dr Sage for involving me in this patient`s care.
Vanda Ken MD
[facility]
Attending Statement:
I saw and examined the patient today with resident. Reviewed care plan with patient, case management, and resident. I agree with the above subjective and physical exam, and plan as documented with adjustments made as necessary. 53-year-old
right-handed male with morbid obesity, cardiomyopathy, uncontrolled type 2 diabetes with CVA resulting in left Manjinder sensory loss and left nondominant hemiparesis resulting in ADL and ambulatory dysfunction as well as dysarthria that will benefit
from being in an acute inpatient rehabilitation setting to maximize his recovery potential with goal of getting back to work.
[2024-01-16 22:10] LABS: Glucose - Point of Care 155 mg/dl (70-99)
[2024-01-16] MEDS: LANTUS 0.3 UNITS SC (22:28)
[2024-01-17 03:48] VITALS: BP 98/59
[2024-01-17 07:10] VITALS: BP 113/67
[2024-01-17 07:34] LABS: Glucose - Point of Care 94 mg/dl (70-99)
[2024-01-17] MEDS: NOVOLOG FLEXPEN-MODERATE RESISTANCE SC ×3 (07:40→16:31)
[2024-01-17] MEDS: NOVOLOG FLEXPEN SC ×2 (07:40→13:05)
[2024-01-17] MEDS: ASPIRIN 325 MG PO (07:41)
[2024-01-17] MEDS: ZETIA 10 MG PO (07:41)
[2024-01-17] MEDS: PLAVIX 75 MG PO (07:41)
[2024-01-17] MEDS: LIPITOR 80 MG PO (07:41)
[2024-01-17] MEDS: FOLVITE 1 MG PO (07:42)
[2024-01-17] MEDS: VITAMIN B-12 1000 MCG PO (07:42)
[2024-01-17] MEDS: IMDUR (EXTENDED RELEASE) 60 MG PO (07:42)
[2024-01-17] MEDS: COREG 6.25 MG PO (07:42)
[2024-01-17] MEDS: COZAAR 25 MG PO (07:42)
[2024-01-17] MEDS: GLUCOPHAGE 1000 MG PO ×2 (07:42→15:57)
[2024-01-17 11:00] VITALS: BP 125/65
--- NOTE | 2024-01-17 11:54 | CARDSERVLU ---
Echocardiogram with Lumason completed after protocol screening completed. Allergies verified.
Patent IV site: ___existing 22P RH__
IV site flushed with 0.9% NaCl pre and post administration.
Diluted bolus method utilized to enhance visualization of ventricular anaya.
Total volume given: __6.5__ mL
Patient tolerated all procedures well without complications.
--- NOTE | 2024-01-17 12:06 | W.PN.HOSP.TC ---
Today's Communication/Plan
-
TTE
Rehab evaluation
Assessment / Plan
Assessment / Plan
IMPRESSION:
53-year-old with history of ischemic cardiomyopathy status post AICD, CAD status post stenting, hypertension, hyperlipidemia, FLORESITA and insulin-dependent diabetes who presents to the emergency department with acute episode of left arm numbness. The
rest of his neurological exam is completely intact. Symptoms been persistent now for the last [address] of the head was unremarkable. His labs were notable for uncontrolled blood glucose of 490. History also suggestive for for
poorly controlled diabetes.
BRAIN MRI
IMPRESSION:
Large acute on chronic right MCA territory infarct. Chronic hemosiderin deposition.
No focal hemodynamically significant stenosis, aneurysm or occlusion.
PLAN:
Acute CVA
- admit to telemetry for possible tia
- continue plavix and aspirin (home meds) per neuro
- continue statin
- MRI results above
- TTE
- appreciate neurology
- rehab evaluation
2. Uncontrolled DM 2 - Reports degree of non-compliance, did not take insulin today or metformin yesterday. BG 490 in ED.
- A1c > 12, patient can't bring insulin to work which is why he's non-compliant
- continue premeal glucose 10 units ac
- sliding scale achs
- continue metformin
- lantus 30 HS (taking Semglee 44 at home with report of am hypoglycemia)
- educated on importance of med compliance
3. Ischemic CMP
- aspirin/plavix and statin
- carvedilol
- imdur and losartan
DVT PPX - lovenox sq
Full code
Anticipated Discharge: Within 24 hours
Subjective/Interval History
-
Date of Service: January 17, 2024
inattention and impaired balance
patient has no new complaints
Objective Data
-
Vital Signs:
Vital Signs
Temp Pulse Resp BP Pulse Ox
98.1 F 80 16 113/67 95
01/17/24 07:10 01/17/24 07:10 01/17/24 07:10 01/17/24 07:10 01/17/24 07:10
I&O
01/16/24 01/17/24 01/18/24
06:59 06:59 06:59
Intake Total 1440 / 1440 900 / 900
Balance 1440 / 1440 900 / 900
Review of Systems
-
History Source: Patient
All other systems: Reviewed and negative
Physical Exam
-
General: No Apparent Distress
HEENT: PERRLA
Respiratory: Clear to Auscultation; Negative Wheezes
Cardiac: Regular Rhythm and S1/S2
GI: Soft and Nontender
Musculoskeletal: No Edema
Skin: Warm and Dry; Negative Rash
Neuro: AO x 3 and Other (decreased sensation left side, impaired gait, impaired proprioception; 5/5 strength upper and lower extremities )
Psych: Calm
Data Reviewed
-
Diagnostic Radiology: Report Reviewed by me
Labs: Labs Reviewed by me
[2024-01-17 12:27] LABS: Glucose - Point of Care 101 mg/dl (70-99)
--- NOTE | 2024-01-17 13:32 | CM ---
Addendum entered by Zoey Valdes 01/17/24 16:09:
[facility] Acute rehab [facility]
Report [phone]

Addendum entered by Zoey Valdes 01/17/24 16:04:
Cost of transport is $175 spouse made aware and she agrees to pay.
Addendum entered by Zoey Valdes 01/17/24 15:45:
Patient has been approved for [facility] Acute rehab, 7 days acute rehab, 01/17/24-01/23/24, NRD 01/23/24, , Auth [id number].
Original Note:
senior sourcing manager reviewed patient's chart and spoke with admissions at [facility] this am, per Karoline at [facility] they have reviewed patient's chart and they can accept patient, patient needs Auth from insurance, employment case manager is waiting on physiatry
evaluation recommendations in order to present to insurance.
Plan; Acute rehab at [facility] needs physiatry and then submit to insurance.
[facility]

Dr Hernandez
[2024-01-17 15:05] VITALS: BP 139/79; PULSE 85; O2SAT 98
[2024-01-17 15:15] VITALS: BP 121/77
--- NOTE | 2024-01-17 15:32 | W.DS.TRANS ---
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
-
Discharge Instructions:
Discharge Diagnosis/Procedures transient ischemic attack
Diet Diabetic, Carb Controlled,Low Cholesterol
Activity As tolerated
Driving Restrictions As prior to admission
Bathing Restrictions None
Other Services PT,OT
Instructions:
Stand-Alone Forms:
Changes to Home Medications: Yes
Discharge Medications:
DC Medications w/original date entered in [facility]
aspirin 325 mg tablet 325 mg PO DAILY Blood clot prevention/tx 11/19/11
metformin 1,000 mg tablet 1,000 mg PO BID@0800,1700 diabetes 11/19/11
ezetimibe 10 mg tablet 10 mg PO DAILY High cholesterol 12/29/20
folic acid 1 mg tablet 1 mg PO DAILY Supplement 12/29/20
insulin lispro 100 unit/mL subcutaneous pen (Humalog KwikPen (U-100) Insulin) 10 units SC MEALS diabetes 04/24/21
carvedilol 6.25 mg tablet (Coreg) 6.25 mg PO BID Blood Pressure 11/28/21
isosorbide mononitrate 60 mg tablet,extended release 24 hr 60 mg PO BID #60 tabs 11/28/21
Metoprolol 1 tab PO DAILY 01/14/24
clopidogrel 75 mg tablet 75 mg PO DAILY Blood Clot Prevention/Tx 01/14/24
insulin glargine-yfgn 100 unit/mL (3 mL) subcutaneous pen (Semglee (insulin glargine-yfgn) Pen) 44 unit SC HS diabetes 01/14/24
atorvastatin 80 mg tablet 80 mg PO DAILY High Cholesterol 01/15/24
losartan 25 mg tablet 25 mg PO DAILY Blood Pressure 01/15/24
atorvastatin 80 mg tablet 80 mg PO HS #30 tabs 01/16/24
cyanocobalamin (vitamin B-12) 1,000 mcg tablet 1,000 mcg PO DAILY #30 tabs 01/16/24
Home Medication Changes
increase Lipitor dosing
initiation B12
Pending Results: No
[2024-01-17 15:53] LABS: Glucose - Point of Care 103 mg/dl (70-99)
[2024-01-17] MEDS: NOVOLOG FLEXPEN 10 UNITS SC (15:57)
== END 2024-01-17 17:38 | DRG 65 ==
LOC: 4 WEST ACU 14:25
PROVIDERS: ADMITTING PHYSICIAN Internal Medicine; ATTENDING PHYSICIAN Student in an Organized Health Care Education/Training Program; CONSULT PHYSICIAN Physical Medicine & Rehabilitation; CONSULT PHYSICIAN Psychiatry & Neurology Neurology; EMERGENCY PHYSICIAN Emergency Medicine; FAMILY PHYSICIAN Internal Medicine
DX: I63.511 Cerebral infarction due to unspecified occlusion or stenosis of right middle cerebral artery (principal); G81.94 Hemiplegia, unspecified affecting left nondominant side; I65.23 Occlusion and stenosis of bilateral carotid arteries; E78.00 Pure hypercholesterolemia, unspecified; I10 Essential (primary) hypertension; I25.10 Atherosclerotic heart disease of native coronary artery without angina pectoris; I25.2 Old myocardial infarction; I25.5 Ischemic cardiomyopathy; G47.33 Obstructive sleep apnea (adult) (pediatric); F17.210 Nicotine dependence, cigarettes, uncomplicated; E11.65 Type 2 diabetes mellitus with hyperglycemia; T38.3X6A Underdosing of insulin and oral hypoglycemic [antidiabetic] drugs, initial encounter; R47.81 Slurred speech; E53.8 Deficiency of other specified B group vitamins; K21.9 Gastro-esophageal reflux disease without esophagitis; R29.701 NIHSS score 1; E66.01 Morbid (severe) obesity due to excess calories; Z68.36 Body mass index [BMI] 36.0-36.9, adult; Z86.73 Personal history of transient ischemic attack (TIA), and cerebral infarction without residual deficits; Z91.138 Patient's unintentional underdosing of medication regimen for other reason; Z95.5 Presence of coronary angioplasty implant and graft; Z95.810 Presence of automatic (implantable) cardiac defibrillator; Z79.4 Long term (current) use of insulin; Z79.82 Long term (current) use of aspirin; Z79.84 Long term (current) use of oral hypoglycemic drugs; Z79.02 Long term (current) use of antithrombotics/antiplatelets; Z79.899 Other long term (current) drug therapy
CPT/HCPCS: 70450; 70544; 70551; 71046; 80053; 80061; 81003; 82010; 82607; 82728; 82746; 82805; 82962; 83036; 83605; 84443; 85025; 92523; 92526; 92610; 93005; 93306; 93880; 96372; 97112; 97116; 97162; 97167; 97535; 99291; 99406; Q9950

== ENCOUNTER 2024-09-24 12:21 | Emergency (ER) | payer OTHER, SELFPAY ==
[2024-09-24 12:34] VITALS: BP 166/95
[2024-09-24 15:31] VITALS: BP 149/89
[2024-09-24 16:44] VITALS: BP 185/84
[2024-09-24 16:45] VITALS: BMI 39.9
[2024-09-24 16:47] VITALS: BP 185/84
[2024-09-24 17:00] VITALS: BP 167/82
[2024-09-24 17:02] VITALS: BP 167/82
--- NOTE | 2024-09-24 17:32 | ED.GENMED ---
History of Present Illness
General
Chief Complaint: Blood Pressure Problem
Source: patient
Exam Limitations: none
Time Seen by Provider: 09/24/24 16:39
Nursing documentation reviewed up to this point in time: agreed with
History of Present Illness
History of Present Illness:
PT IS A 53 Y/O M
with h/o cardiomyopathy s/p AICD, CAD post stenting, hld, htn, IDDM, TIA
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
pt says that he was working in 90 degree heat and started feeling perihaps a little lightheaded but 'like i was overheated'
he asked his maykel to go home and they had him stop at the [facility], wehre his bp was 180/90 sot ehy sent him in to the ER
pt says he never had any cp, sob, headache, weakness, numbness, tingling in arms or legs, change in mental status
pt says he just wanted to go home and sit in his air conditioning
once he got here he felt fine and has felt fine
he wants to go home
declined any labs
ekg unchanged
pt has no symptoms here.
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
on carvediilol 6.25 bid and losartan 25 daily
missed carvedilol dose last night
Past History
Past History
ED Past Medical History: CAD, HTN, Hypercholesterolemia, IDDM, [place] and Other (Obstructive sleep apnea)
ED Past Surgical History: Cardiac (4 vessel stent placement) and Orthopedic
Social History
Tobacco: Smoker
Alcohol: Occasional
Drug: None
Personal:
Living: with family
Employment: Employed
Family History
Family History: Other (Noncontributory)
Review of Systems
Review of Systems
Allergies reviewed?: Yes
All Other Systems: Not applicable
Phy Exam
Physical Exam
Physical Exam:
GENERAL: Alert , in no apparent distress
EYE: pupils equal and reactive
NECK: Supple
ENT: o/p clr, mmm.
CARDIAC: Regular rate and rhythm .
LUNGS: Clear breath sounds bilaterally, no acute respiratory distress, no wheezes/rales/rhonchi
ABDOMEN: Soft, without focal tenderness, no r/g, no cvat, normal bowel sounds
NEUROLOGICAL: Alert and oriented, no focal neuro deficits
SKIN: Warm and dry, skin intact.
MUSCULOSKELETAL: No edema, well perfused. neg jose's sign
PSYCH: Normal and appropriate interaction.
Course
Orders/Labs/Results
Orders:
Orders
09/24/24 12:41
EKG [Electrocardiogram (*1)] Urgent
Reason for Study: Hypertension, Benign
09/24/24 12:42
EKG- Treatment ONCE
Vital Signs
Initial and Last Documented VS:
Initial Vital Signs
Temp Pulse Resp BP Pulse Ox
36.9 C 91 18 166/95 99
09/24/24 12:34 09/24/24 12:34 09/24/24 12:34 09/24/24 12:34 09/24/24 12:34
Last Documented Vital Signs
Temp Pulse Resp BP Pulse Ox
36.9 C 80 13 167/82 97
09/24/24 16:47 09/24/24 17:02 09/24/24 17:02 09/24/24 17:02 09/24/24 17:02
MDM/Problems Addressed
Differential Diagnosis Includes:
near syncope, hypertension, heat reaction, lightheadedness, hypoglycemia
MDM/Problems Addressed:
53 y/o M
h/o cardiomyoathpy s/p ACID, stenting,
here with feeling of lightheadedness or feeling overheated while working in the high heat
he now feels better
his bp was checked while at work and was elevated so they sent him for eval
he had no concerning stroke symptoms
pt does not wish for any testing, he feels fine now
he missed dose of carvedilol last night; bp 160/70s
ekg unchanged anterolateral infarct
no acute ischemia
neuro intact
no murmur
will get accucheck and d/c home
ED Attending Note
-
Portions of this chart may have been created with voice recognition software.� Occasional wrong word or��sound alike� substitutions may have occurred due to the inherent limitations of voice recognition software.
Discharge Plan
Departure
Patient Disposition: Home (Routine Discharge)
Date of Disposition: 09/24/24
Time of Disposition: 17:40
Patient with high blood pressure during this ER visit?: Yes
Covid-19: Not Applicable
Discharge Problem:
Hypertension
Instructions: High Blood Pressure (DC)
Prescriptions:
No Action
aspirin 325 MG tablet
325 mg PO DAILY
metformin 1,000 MG tablet
1,000 mg PO BID@0800,1700
folic acid 1 MG tablet
1 mg PO DAILY
ezetimibe 10 MG tablet
10 mg PO DAILY
insulin lispro [Humalog KwikPen Insulin] 100 UNIT/ML insulin pen
10 units SC MEALS
carvedilol [Coreg] 6.25 mg Tablet
6.25 mg PO BID
isosorbide mononitrate 60 mg tablet extended release 24 hr
60 mg PO BID Qty: 60 6RF
Rx Instructions:
Increase Imdur to 60 mg twice a day
clopidogrel 75 mg tablet
75 mg PO DAILY
insulin glargine-yfgn [Semglee(insulin glarg-yfgn)Pen] 100 unit/mL (3 mL) insulin pen
44 unit SC HS
Metoprolol
1 tab PO DAILY
atorvastatin 80 mg Tablet
80 mg PO DAILY
losartan 25 mg Tablet
25 mg PO DAILY
atorvastatin 80 mg Tablet
80 mg PO HS Qty: 30 0RF
cyanocobalamin (vitamin B-12) 1,000 mcg Tablet
1,000 mcg PO DAILY Qty: 30 0RF
Activity Restrictions/Additional Instructions:
your blood pressure is mildly elevated
you declined any additional testing.
maybe because you msised your carvedilol
make sure to take you rmedications
return for chest pain, shortness of breath, headache, weakness, etc
Interventions
Interventions:
*Risk Screen - Suicide Last Done: 09/24/24 12:34
*General Assessment Last Done: 09/24/24 12:34
*Neglect/Abuse Screening Last Done: 09/24/24 16:47
*ED- Fall Risk Assessment Last Done: 09/24/24 16:47
*ED COVID-19 Vaccine History Last Done: 09/24/24 16:47
ED- Cardiac Assessment Last Done: 09/24/24 16:47
ED- Neurological Assessment Last Done: 09/24/24 16:47
ED- Pulmonary Assessment Last Done: 09/24/24 16:47
Discharge Date and Time
Print Language: SYRIAC
[2024-09-24 17:48] LABS: Glucose - Point of Care 95 mg/dl (70-99)
== END 2024-09-24 18:09 | disposition home or self-care (01) ==
LOC: EMR 12:21
PROVIDERS: EMERGENCY PHYSICIAN Emergency Medicine; FAMILY PHYSICIAN Internal Medicine
DX: I10 Essential (primary) hypertension (principal); E11.9 Type 2 diabetes mellitus without complications; I25.10 Atherosclerotic heart disease of native coronary artery without angina pectoris; E78.00 Pure hypercholesterolemia, unspecified; F17.200 Nicotine dependence, unspecified, uncomplicated; G47.33 Obstructive sleep apnea (adult) (pediatric); I42.9 Cardiomyopathy, unspecified; Z79.4 Long term (current) use of insulin; Z79.899 Other long term (current) drug therapy; Z86.73 Personal history of transient ischemic attack (TIA), and cerebral infarction without residual deficits; Z95.5 Presence of coronary angioplasty implant and graft; Z95.810 Presence of automatic (implantable) cardiac defibrillator
CPT/HCPCS: 99284; 82962; 93005

== ENCOUNTER 2025-03-01 09:48 | Emergency (ER) | payer OTHER, SELFPAY ==
[2025-03-01 11:22] VITALS: BMI 39.1
--- NOTE | 2025-03-01 11:23 | ED.GENMED ---
History of Present Illness
<Marianela Reilly MD, Resident - Last Filed: 03/01/25 13:48>
General
Chief Complaint: Dizziness
Time Seen by Provider: 03/01/25 10:01
History of Present Illness
History of Present Illness:
54-year-old male with past medical history of CAD status post NSTEMI, ischemic cardiomyopathy with AICD placement, CVA, TIA presents with dizziness. He first had an episode of dizziness last night after doing a lot of laundry. He describes the
feeling like he was going to pass out. He sat down and it resolved. 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 This morning's episode of dizziness is associated with throbbing left arm pain associated with some
numbness and tingling. He thought he may be having a cardiac event and opted to come to the ED for further evaluation. He denies any nausea, diaphoresis, floaters prior to dizziness onset. He denies any history of arrhythmias. He denies chest
pain, heart palpitations, SOB, weakness, blurry vision, numbness or tingling elsewhere. He denies passing out.
<Rose Hook MD - Last Filed: 03/01/25 13:46>
General
Source: patient
Exam Limitations: none
History of Present Illness
History of Present Illness:
54-year-old male with past medical history of CAD status post NSTEMI, ischemic cardiomyopathy with AICD placement, CVA, TIA presents with dizziness. He first had an episode of dizziness last night after doing a lot of laundry. He describes the
feeling like he was going to pass out. He sat down and it resolved. 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 This morning's episode of dizziness is associated with throbbing left arm pain associated with some
tingling. He thought he may be having a cardiac event and opted to come to the ED for further evaluation. He denies any nausea, diaphoresis, floaters prior to dizziness onset. He denies any history of arrhythmias. He denies chest pain, heart
palpitations, SOB, weakness, blurry vision, numbness or tingling elsewhere. He denies passing out. Patient denies vision changes. He denies any difficulty walking or any balance issues
Past History
<Marianela Reilly MD, Resident - Last Filed: 03/01/25 13:48>
Past History
ED Past Medical History: CAD, HTN, Hypercholesterolemia, IDDM, [place] and Other (Obstructive sleep apnea)
ED Past Surgical History: Cardiac (4 vessel stent placement) and Orthopedic
Social History
Tobacco: Former smoker (quite last year, 20 yr 1ppd hx)
Alcohol: Occasional
Drug: None
Personal:
Living: with family
Employment: Employed
Family History
Family History: Other (Noncontributory)
Review of Systems
<Marianela Reilly MD, Resident - Last Filed: 03/01/25 13:48>
Review of Systems
Constitutional: Reports no symptoms
EENT: Reports no symptoms
Respiratory: Reports no symptoms
Cardiac: Reports no symptoms
ABD/GI: Reports no symptoms
: Reports no symptoms
Musculoskeletal: Reports other (Left arm throbbing, numbness, tingling)
Neurological: Reports dizzy and other (lightheadedness)
<Rose Hook MD - Last Filed: 03/01/25 13:46>
Review of Systems
Allergies reviewed?: Yes
All Other Systems: ROS reviewed and negative except as documented in HPI and ROS
Cardiac: Reports other (Lightheadedness but no syncope or loss of consciousness)
Musculoskeletal: Reports no symptoms
Skin: Reports no symptoms
Neurological: Reports other (Tingling of left arm which is now gone completely. No numbness or weakness)
Endocrine: Reports no symptoms
Hematologic/Lymphatic: Reports no symptoms
Psychiatric: Reports no symptoms
Phy Exam
<Marianela Reilly MD, Resident - Last Filed: 03/01/25 13:48>
Physical Exam
Physical Exam:
General: Non-toxic appearing, comfortable
Cardiac: Regular S1, S2, no murmurs, rubs or gallops
Pulm: Clear breath sounds bilaterally
Abd: soft, non-tender, non-distended, normal BSx4
Ext: No edema or calf tenderness
Neuro: NIH 0, CN II-XII intact, sensation intact bilaterally, 5/5 strength bilateral upper and lower extremities
NIH Stroke Score
Level of Consciousness: 0 - Alert
LOC questions: 0-Answers both correctly
LOC Commands: 0-Performs both correctly
Best Gaze: 0-Normal
Visual Santos: 0=Normal, no visual loss
Facial palsy: 0=Normal, symmetrical
Motor - Right Arm: 0=No drift 10 seconds
Motor - Left Arm: 0=No drift 10 seconds
Motor - Right Le-No drift 5 seconds
Motor - Left Le-No drift 5 seconds
Limb Ataxia: 0-Absent
Sensation: 0-Normal
Best Language: 0-No aphasia
Dysarthria: 0-Normal
Extinction and Inattention: 0-No abnormality
Total Score:: 0
Motor
Tremors: none
Bilateral lower extremities: 5
<Rose Hook MD - Last Filed: 03/01/25 13:46>
Physical Exam
Physical Exam:
Physical Exam
General: no apparent distress, not acutely ill. Well and comfortable appearing, conversational and smiling
Neck: supple. no meningeal signs. normal psoterior pharynx
Heart: s1/s2 regular rate and rhythm,
Lungs: no acute respiratory distress. clear bilaterally
Abdomen: normal bowel sounds. not tender. no CVAT
Neuro: alert and orientedx3. no focal neurological deficits. Extraocular muscles intact. 5 out of 5 strength without drift. Normal steady gait. Visual santos intact
Skin: no rash
Psychiatric: well kept. interactive and cooperative
Extremities: no edema. no calf tenderness. negative homans. good distal pulses
NIH Stroke Score
Total Score:: 0
Course
<Marianela Reilly MD, Resident - Last Filed: 03/01/25 13:48>
Orders/Labs/Results
Orders:
Orders
03/01/25 10:47
CT Head W/o Iv Contrast Urgent
Comment:
Reason For Exam: Dizziness, RUE numbness tingling
03/01/25 10:49
Cardiac Monitoring- Treatment ONCE
03/01/25 10:50
Orthostatic VS- Treatment ONCE
03/01/25 11:16
CBC/With Diff [Complete Blood Count/With Diff] Urgent
CMP [Comprehensive Metabolic Panel] Urgent
Troponin I Urgent
Abnormal Lab Results
03/01/25
11:16
RBC 4.59 L 10^6/uL
(4.70-6.10)
Hgb 12.5 L g/dL
(13.0-18.0)
Hct 37.3 L %
(39.0-52.0)
MPV 10.7 H fL
(7.4-10.4)
Absolute Monos (auto) 0.7 H 10^3/uL
(0.1-0.6)
Chloride 108 H mmol/L
(98-107)
03/01/25 11:16
03/01/25 11:16
Vital Signs
Initial and Last Documented VS:
Initial Vital Signs
Pulse Resp Pulse Ox
77 16 95
03/01/25 11:23 03/01/25 11:23 03/01/25 11:23
Last Documented Vital Signs
Temp Pulse Resp BP Pulse Ox
97.6 F 73 16 131/85 95
03/01/25 11:24 03/01/25 11:30 03/01/25 11:30 03/01/25 11:24 03/01/25 13:44
<Rose Hook MD - Last Filed: 03/01/25 13:46>
Orders/Labs/Results
Orders:
Orders
03/01/25 10:47
CT Head W/o Iv Contrast Urgent
Comment:
Reason For Exam: Dizziness, RUE numbness tingling
03/01/25 10:49
Cardiac Monitoring- Treatment ONCE
03/01/25 10:50
Orthostatic VS- Treatment ONCE
03/01/25 11:16
CBC/With Diff [Complete Blood Count/With Diff] Urgent
CMP [Comprehensive Metabolic Panel] Urgent
Troponin I Urgent
Abnormal Lab Results
03/01/25
11:16
RBC 4.59 L 10^6/uL
(4.70-6.10)
Hgb 12.5 L g/dL
(13.0-18.0)
Hct 37.3 L %
(39.0-52.0)
MPV 10.7 H fL
(7.4-10.4)
Absolute Monos (auto) 0.7 H 10^3/uL
(0.1-0.6)
Chloride 108 H mmol/L
(98-107)
03/01/25 11:16
03/01/25 11:16
Vital Signs
Initial and Last Documented VS:
Initial Vital Signs
Pulse Resp Pulse Ox
77 16 95
03/01/25 11:23 03/01/25 11:23 03/01/25 11:23
Last Documented Vital Signs
Temp Pulse Resp BP Pulse Ox
97.6 F 73 16 131/85 95
03/01/25 11:24 03/01/25 11:30 03/01/25 11:30 03/01/25 11:24 03/01/25 13:44
<Marianela Reilly MD, Resident - Last Filed: 03/01/25 13:48>
MDM/Problems Addressed
Differential Diagnosis Includes:
Cardiac event (including but not limited to arrhythmia, IA), TIA/CVA, vasovagal event, Vertigo
Chronic conditions affecting care:
CAD s/p NSTEMI, multiple stents, HFrEF EF 20-25%, Prior CVA
<Rose Hook MD - Last Filed: 03/01/25 13:46>
MDM/Problems Addressed
MDM/Problems Addressed:
Patient presents with acute lightheadedness which is now resolved
Chronic conditions affecting care: CAD
Acute Exacerbation and/or Progression of Chronic Illness:
Patient may have acute exacerbation of coronary artery disease
Acute Exacerbation and/or Progression of Chronic Illness: CAD
<Marianela Reilly MD, Resident - Last Filed: 03/01/25 13:48>
Data Reviewed
Review of Other/Old Records Reveals: Labs (Prior hg 14.9 now 12.5), Records (Prior echo 2023 20-25% EF) and Radiology Studies ([id number] MRI large acute on chronic right MCA territory infarct)
Source: patient
<Rose Hook MD - Last Filed: 03/01/25 13:46>
*Pulse Oximetry
SaO2: 95
Oxygen Mode of Delivery: Room air
Patient hypoxic: no
*EKG
Interpreted by ED Provider?: Yes
Interpretation: abnormal
Comparison EKG: no changes
Rate: normal
Rhythm: sinus
[place]: normal axis
Interval: normal interval
QRS Pattern: left vent hypertrophy
Ischemia: non-specific ST changes
*Manuscripts Curator Interpretation
Rate: normal
Interpretation: normal
Rhythm: sinus
*Critical Care Note
Total Time (30-74mins, 75-104mins- exclusive of procedures): Not Applicable
<Rose Hook MD - Last Filed: 03/01/25 13:46>
Patient Management
Social determinants of health affecting care: Living situation and Strong social support
<Rose Hook MD - Last Filed: 03/01/25 13:46>
Update Note
Update Note:
Patient appears well and comfortable. Lungs are clear and there is no sign of CHF. EKG is unchanged and troponin is normal, and additionally, patient has had no chest pain or shortness of breath. Patient describes the symptoms of more of a
lightheaded feeling and denies any vertigo or balance disturbance. He has a normal neurological exam and there is no sign of stroke.
ED Attending Note
<Marianela Reilly MD, Resident - Last Filed: 03/01/25 13:48>
-
Portions of this chart may have been created with voice recognition software.� Occasional wrong word or��sound alike� substitutions may have occurred due to the inherent limitations of voice recognition software.
Discharge Plan
Departure
Patient Disposition: Home (Routine Discharge)
Date of Disposition: 03/01/25
Time of Disposition: 12:33
Patient with high blood pressure during this ER visit?: Yes
Condition: Good
Covid-19: Not Applicable
Discharge Problem:
Light-headedness
Instructions: Dizziness in adults - ED (DC), BLOOD PRESSURE
Prescriptions:
No Action
aspirin 325 MG tablet
325 mg PO DAILY
metformin 1,000 MG tablet
1,000 mg PO BID@0800,1700
folic acid 1 MG tablet
1 mg PO DAILY
ezetimibe 10 MG tablet
10 mg PO DAILY
insulin lispro [Humalog KwikPen Insulin] 100 UNIT/ML insulin pen
10 units SC MEALS
carvedilol [Coreg] 6.25 mg Tablet
6.25 mg PO BID
isosorbide mononitrate 60 mg tablet extended release 24 hr
60 mg PO BID Qty: 60 6RF
Rx Instructions:
Increase Imdur to 60 mg twice a day
clopidogrel 75 mg tablet
75 mg PO DAILY
insulin glargine-yfgn [Semglee(insulin glarg-yfgn)Pen] 100 unit/mL (3 mL) insulin pen
44 unit SC HS
Metoprolol
1 tab PO DAILY
atorvastatin 80 mg Tablet
80 mg PO DAILY
losartan 25 mg Tablet
25 mg PO DAILY
atorvastatin 80 mg Tablet
80 mg PO HS Qty: 30 0RF
cyanocobalamin (vitamin B-12) 1,000 mcg Tablet
1,000 mcg PO DAILY Qty: 30 0RF
Referrals:
Ladarius Steinberg MD [Family Provider]
Stand Alone Forms: Return to Work
Activity Restrictions/Additional Instructions:
It is extremely important that you return immediately to the emergency department if you experience any chest pain or shortness of breath. Additionally, it is important that you return for any balance problems, visual changes, numbness or weakness.
Follow-up with your primary care doctor in 2 to 3 days
Interventions
Interventions:
*Risk Screen - Suicide Last Done: 03/01/25 11:24
*General Assessment Last Done: 03/01/25 11:24
*Neglect/Abuse Screening Last Done: 03/01/25 11:24
*ED- Fall Risk Assessment Last Done: 03/01/25 11:24
*ED COVID-19 Vaccine History Last Done: 03/01/25 11:24
*ED Influenza Vaccine History Last Done: 03/01/25 11:24
*Nursing Disposition Last Done: 03/01/25 13:12
ED- Neurological Assessment Last Done: 03/01/25 11:24
ED- Cardiac Assessment Last Done: 03/01/25 11:24
ED Swallowing Screen Last Done: 03/01/25 11:24
Discharge Date and Time
Discharge Date/Time: 03/01/25 13:12
Print Language: GUATEMALAN
[2025-03-01 11:24] VITALS: BP 128/59; BP 131/85
[2025-03-01 11:35] LABS: Hematocrit 37.3 % (39.0-52.0); Hemoglobin 12.5 g/dL (13.0-18.0); Mean Corp Hgb Conc. 33.5 g/dL (33.0-37.0); Mean Corpuscular Volume 81.3 fL (80.0-94.0); Nucleated Red Blood Cells % 0 % (-); Platelet Count 222 10^3/uL (130-400); Red Cell Dist. Width 13.0 % (11.5-14.5)
[2025-03-01 11:52] LABS: ALT (SGPT) 28 U/L (0-50); AST (SGOT) 23 U/L (17-59); Albumin 4.1 g/dl (3.5-5.0); Alkaline Phosphatase 56 U/L (38-126); Blood Urea Nitrogen 14 mg/dl (9-20); Calcium 9.1 mg/dl (8.4-10.2); Carbon Dioxide 26 mmol/L (22-30); Chloride 108 mmol/L (98-107); Estimated Creatinine Clearance > 125 ml/min; Glucose 87 mg/dl (70-99); Potassium 4.2 mmol/L (3.5-5.1); Sodium 136 mmol/L (135-145); Total Protein 6.6 g/dl (6.3-8.2); eGFR > 60.00
[2025-03-01 11:56] VITALS: BP 136/81; BP 138/91; BP 141/91; PULSE 75; PULSE 76
[2025-03-01 11:59] LABS: Troponin I < 0.012 ng/ml
== END 2025-03-01 13:12 | disposition home or self-care (01) ==
LOC: EMR 09:48
PROVIDERS: EMERGENCY PHYSICIAN Emergency Medicine; FAMILY PHYSICIAN Internal Medicine
DX: R42 Dizziness and giddiness (principal); E11.9 Type 2 diabetes mellitus without complications; E78.00 Pure hypercholesterolemia, unspecified; G47.33 Obstructive sleep apnea (adult) (pediatric); I11.0 Hypertensive heart disease with heart failure; I50.22 Chronic systolic (congestive) heart failure; I25.10 Atherosclerotic heart disease of native coronary artery without angina pectoris; I25.2 Old myocardial infarction; Z86.73 Personal history of transient ischemic attack (TIA), and cerebral infarction without residual deficits; Z87.891 Personal history of nicotine dependence; Z95.5 Presence of coronary angioplasty implant and graft; Z95.810 Presence of automatic (implantable) cardiac defibrillator
CPT/HCPCS: 99284; 70450; 80053; 84484; 85025